=== PATIENT | male | born 1960 | race Caucasian/White ===

== ENCOUNTER 2019-10-07 17:33 | Emergency (ER) | payer OTHER, BC, SELFPAY ==
--- NOTE | ~2019-10-07 | XR_ITS ---
XR foot RT min 3V 10/07/2019 17:56 Indication: Dorsal right foot pain. Procedure: 4 views of the right foot Comparison: No prior studies for comparison. Findings: No fracture, subluxation or dislocation. There is anatomic alignment. Lisfranc joint intact . Osteopenia. No focal soft tissue abnormality. Impression: 1: No acute fracture. Reviewed, dictated and finalized at location A. [employer]PER Impression: 1: No acute fracture.
[2019-10-07 17:40] VITALS: BP 129/66; PULSE 88; RESP 18; TEMP 36.8; O2SAT 98
--- NOTE | 2019-10-07 18:14 | ED.LOWEXIN ---
HPI - Extremity Injury (Lower) General Chief Complaint: Extremity Injury, Lower Stated Complaint: foot injury Time Seen by Provider: 10/07/19 17:59 Source: patient Mode of arrival: wheelchair Limitations: no limitations History of Present Illness HPI Narrative: This is a 59-year-old male that presents the emergency department for right foot pain after an injury today. 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 Reports he dropped a shelf on his right foot. Reports since he has had pain on the top of his foot. Reports the pain is making it hard for him to bear weight on the foot. Denies decreased range of motion or numbness. Related Data Allergies Allergy/AdvReac Type Severity Reaction Status Date / Time cephalexin Allergy Unknown Swelling Verified 10/01/17 07:03 Iodinated Contrast Media Allergy Unknown Verified 05/22/13 15:46 Contrast Media Allergy Unknown HIVES Uncoded 12/12/18 18:02 Review of Systems Review of Systems: Narrative: CONSTITUTIONAL: Denies fever MUSCULOSKELETAL: Reports joint pain, and myalgia. NEUROLOGIC: Denies numbness All systems reviewed & are unremarkable except as noted in HPI and below PMFSH Family History Family History (Updated 10/02/17 @ 14:31 by DOCTOR UNKNOWN) Father Family history of malignant neoplasm of brain Family history of lung cancer Sibling Patient's sister is in good health Diabetes mellitus Malignant neoplasm of prostate Mother Cerebrovascular accident Family history of Alzheimer's disease Social History Social History Smoking status: Heavy tobacco smoker Alcohol intake: current Exam Narrative: Exam Narrative: GENERAL: Well-appearing, well-nourished, and in no acute distress. HEAD: Normocephalic, atraumatic. EYES: EOMI. EXTREMITIES: Normal range of motion. No edema, erythema or obvious deformity. Normal DP pulse in the right foot. Normal sensation SKIN: Warm, dry, no rash. NEURO: No focal deficits. Alert and oriented x3. PSYCH: Normal mood and affect Course Vital Signs Vital signs: Vital Signs Temperature 98.2 F 10/07/19 17:40 Pulse Rate 88 10/07/19 17:40 Respiratory Rate 18 10/07/19 17:40 Blood Pressure 129/66 10/07/19 17:40 Pulse Oximetry 98 10/07/19 17:40 Temperature 98.2 F 10/07/19 17:40 Pulse Rate 88 10/07/19 17:40 Respiratory Rate 18 10/07/19 17:40 Blood Pressure 129/66 10/07/19 17:40 Pulse Oximetry 98 10/07/19 17:40 MDM - Extremity Injury (Lower) MDM Narrative Medical decision making narrative: Patient presents to the emergency department for right foot pain after an injury today. Right foot x-ray shows no acute changes. Patient will be placed in a postop shoe and given crutches for comfort. He was instructed to rest, ice elevate and take [id number] pain medication as needed. He will be given orthopedics for follow up Imaging Data Radiologist's impression: ITS Impressions Foot X-Ray 10/07/19 17:57 Impression: 1: No acute fracture. Critical Care Time Critical Care Time Critical Care Time: No Discharge Plan Discharge Clinical Impression: Acute pain of right foot Patient Disposition: Home, Self-Care Condition: Stable Instructions: Crush Injury (ED) Additional Instructions: Return to the emergency department if you experience fever, redness and swelling of your leg, numbness, or any other symptoms that are concerning to you Rest, ice, elevate. [id number] pain medication as needed Follow-up with orthopedics Follow-up/Referrals: Clint Hernandez MD [Physician] - 1 Week UNKNOWN,DOCTOR [Primary Care Provider] -
== END 2019-10-07 19:02 | disposition home or self-care (01) ==
PROVIDERS: Emergency Provider Emergency Medicine
DX: M79.671 Pain in right foot (principal); F17.200 Nicotine dependence, unspecified, uncomplicated; W20.8XXA Other cause of strike by thrown, projected or falling object, initial encounter
CPT/HCPCS: 73630; 99283

== ENCOUNTER 2020-10-07 15:55 | Outpatient (CLI) | payer OTHER, SELFPAY ==
--- NOTE | ~2020-10-07 | CT_ITS ---
EXAMINATION:CT lung screening DATE: 10/07/2020 16:45 INDICATION: Personal history of nicotine dependence. Current smoker with 30 pack year history. TECHNIQUE: Computed tomography (CT) of the chest was performed without intravenous contrast. Automate d exposure control and iterative reconstruction technique were employed. The dose-length product (DLP ) was 87.39 mGy-cm. COMPARISON: Chest CT 09/11/2019, 02/14/19. FINDINGS: There is mild emphysema. There is mild scarring at the lung apices. There is mild scarring in right upper lobe. Again seen is a 4 mm nodule in right lower lobe. There is a 6.6 x 3.9 cm pneumat ocele in right lower lobe. There are 10 mm and 8 mm nodules within the pneumatocele, stable from . A calcified right lung nodule is consistent with old granulomatous disease. No pleural effusion. The heart size is normal. There are coronary artery calcifications. No pericardial effusion. There is mild thoracic spondylosis. IMPRESSION: 1. Lung-RADS category 2: Benign appearance or behavior. Continue annual screening with noncontrast lo w-dose chest CT in 12 months. Reviewed, dictated and finalized at location A. [facility] CLINICIAN IMPRESSION: 1. Lung-RADS category 2: Benign appearance or behavior. Continue annual screeni ng with noncontrast low-dose chest CT in 12 months.
== END 2020-10-07 15:56 | disposition home or self-care (01) ==
PROVIDERS: Visit Provider Internal Medicine Critical Care Medicine
DX: Z12.2 Encounter for screening for malignant neoplasm of respiratory organs (principal); Z87.891 Personal history of nicotine dependence
CPT/HCPCS: 71271

== ENCOUNTER 2022-12-11 08:29 | Emergency (ER) | payer OTHER, SELFPAY ==
[2022-12-11 08:52] VITALS: BP 159/76; PULSE 96; RESP 18; TEMP 36.4; O2SAT 97
--- NOTE | 2022-12-11 09:06 | ED.EXTPRO ---
HPI - Extremity Problem General Chief complaint: Extremity Injury, Upper Stated complaint: . Time Seen by Provider: 12/11/22 08:32 Source: patient Mode of arrival: ambulatory Limitations: no limitations History of Present Illness HPI Narrative: Lars is a 62-year-old male patient presenting to the clinic today with complaints of right elbow pain/swelling. He reports that is started to become painful on Saturday. 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 Has had this problem before and it resolved on its own. No known injury to his right elbow. States he is feeling a popping and a knot in his elbow. Related Data Allergies Allergy/AdvReac Type Severity Reaction Status Date / Time cephalexin Allergy Unknown Swelling Verified 12/11/22 08:58 Iodinated Contrast Media Allergy Unknown Unknown Verified 12/11/22 08:58 Contrast Media Allergy Unknown HIVES Uncoded 12/11/22 08:58 Review of Systems Review of Systems: Pertinent positives per HPI. Patient denies any fever, chills, rash, headache, visual changes, dizziness, cough, runny nose, sore throat, shortness of breath, chest pain, palpitations, nausea, vomiting, diarrhea, constipation, abdominal pain, or any urinary issues. PMFSH Family History Family History Father Family history of malignant neoplasm of brain Family history of lung cancer Sibling Patient's sister is in good health Diabetes mellitus Malignant neoplasm of prostate Mother Cerebrovascular accident Family history of Alzheimer's disease Social History Social History Years smoked: 30 Smoking status: Current every day smoker Alcohol intake: current Comments At the time of my signature, I reviewed and agree with the nursing past medical, surgical, social, and family history. There is no relevant family history pertinent to the patient complaint. Exam Narrative: General: Well-developed, well nourished, in no apparent distress Head: Normocephalic, atraumatic. Cardio: Regular rate and rhythm, s1 and s2 normal, no murmur appreciated. Resp: Clear to auscultation bilaterally, no rhonchi, rales, wheezing or rubs. Musculoskeletal: No deformity, no redness or erythema, swelling with fluid noted over the right olecranon, tender to palpation with fluctuance, mild discomfort with range of motion, grossly normal range of motion, muscle strength strong and equal, peripheral pulse strong, no cyanosis, normal gait and station Course Course Emergency Course: Portions of this record may have been created with voice recognition software. Level of Care: Express Care Visit Vital Signs Vital signs: Vital Signs Temperature 36.4 C 12/11/22 08:52 Pulse Rate 96 12/11/22 08:52 Respiratory Rate 18 12/11/22 08:52 Blood Pressure 159/76 H 12/11/22 08:52 Pulse Oximetry 97 12/11/22 08:52 Oxygen Delivery Room Air 12/11/22 08:52 Temperature 36.4 C 12/11/22 08:52 Pulse Rate 96 12/11/22 08:52 Respiratory Rate 18 12/11/22 08:52 Blood Pressure 159/76 H 12/11/22 08:52 Pulse Oximetry 97 12/11/22 08:52 Oxygen Delivery Room Air 12/11/22 08:52 Vital signs reviewed Procedures Abscess I/D right elbow: Date of Incision: 12/11/22 Side (if applicable): right Sedation/analgesia: none Local Anesthetic: none Technique: needle aspiration Amount of fluid expressed (mL): 10 Irrigation: No Packing used?: none I&D Results: Other (Clear bursa fluid) Complications: other (None) Abcess I&D Additional Comments: Verbal consent obtained for aspiration of bursa fluid to the right elbow. Risk and benefits explained and patient voiced understanding. Area was cleansed with an alcohol prep and an 18 gauge needle was then used to withdrawal 10 mL of clear bursa fluid. Bleeding was controlled
== END 2022-12-11 09:14 | disposition home or self-care (01) ==
PROVIDERS: Emergency Provider Nurse Practitioner Family
DX: M70.21 Olecranon bursitis, right elbow (principal); F17.200 Nicotine dependence, unspecified, uncomplicated
CPT/HCPCS: 20605; 99213; G0463

== ENCOUNTER 2022-12-22 15:06 | Emergency (ER) | payer OTHER, SELFPAY ==
--- NOTE | ~2022-12-22 | XR_ITS ---
EXAMINATION: XR elbow RT min 3V DATE: 12/22/2022 16:17 INDICATION: Right elbow injury post catching 833 weeks prior. TECHNIQUE: Anteroposterior, two oblique and lateral views of the right elbow were obtained. COMPARISON: None. FINDINGS: Alignment is normal. No fracture or joint effusion. Joint spaces are normal. Small enthesophyte at th e lateral epicondyle and tiny enthesopathic ossicle along the medial epicondyle. Likely bandaging mat erial posterior to the right elbow which focally compresses the underlying soft tissues. Soft tissues are otherwise unremarkable. IMPRESSION: 1. No right elbow joint effusion or acute osseous abnormality. Reviewed, dictated and finalized at location A.
--- NOTE | 2022-12-22 15:16 | ED.EXTPRO ---
HPI - Extremity Problem General Chief complaint: Extremity Injury, Upper Stated complaint: swollen rt elbow Time Seen by Provider: 12/22/22 15:14 Source: patient Mode of arrival: ambulatory Limitations: no limitations History of Present Illness HPI Narrative: Lars's a 62-year-old male patient presenting to the clinic today with complaints of swelling of his right elbow. I saw this patient back on December 11 and diagnosed with olecranon bursitis and completed a needle aspiration of the bursa fluid. He reports Related Data Allergies Allergy/AdvReac Type Severity Reaction Status Date / Time cephalexin Allergy Unknown Swelling Verified 12/22/22 15:25 Iodinated Contrast Media Allergy Unknown Unknown Verified 12/22/22 15:25 Contrast Media Allergy Unknown HIVES Uncoded 12/22/22 15:25 Review of Systems Review of Systems: Pertinent positives per HPI. Patient denies any fever, chills, rash, headache, visual changes, dizziness, cough, runny nose, sore throat, shortness of breath, chest pain, palpitations, nausea, vomiting, diarrhea, constipation, abdominal pain, or any urinary issues. PMFSH Family History Family History Father Family history of malignant neoplasm of brain Family history of lung cancer Sibling Patient's sister is in good health Diabetes mellitus Malignant neoplasm of prostate Mother Cerebrovascular accident Family history of Alzheimer's disease Social History Social History Years smoked: 30 Smoking status: Current every day smoker Alcohol intake: current Comments At the time of my signature, I reviewed and agree with the nursing past medical, surgical, social, and family history. There is no relevant family history pertinent to the patient complaint. Exam Narrative: General: Well-developed, well nourished, in no apparent distress Head: Normocephalic, atraumatic. Cardio: Regular rate and rhythm, s1 and s2 normal, no murmur appreciated. Resp: Clear to auscultation bilaterally, no rhonchi, rales, wheezing or rubs. Musculoskeletal: No deformity, tender to palpation over the epicondylitis with bursitis/ significant tissue swelling, grossly normal range of motion, muscle strength strong and equal, peripheral pulse strong, no edema, no cyanosis, normal gait and station Course Course Emergency Course: Portions of this record may have been created with voice recognition software. Level of Care: Express Care Visit Vital Signs Vital signs: Vital Signs Temperature 35.9 C L 12/22/22 15:28 Pulse Rate 103 H 12/22/22 15:28 Respiratory Rate 20 12/22/22 15:28 Blood Pressure 129/75 12/22/22 15:28 Pulse Oximetry 98 12/22/22 15:28 Oxygen Delivery Room Air 12/22/22 15:28 Temperature 35.9 C L 12/22/22 15:28 Pulse Rate 103 H 12/22/22 15:28 Respiratory Rate 20 12/22/22 15:28 Blood Pressure 129/75 12/22/22 15:28 Pulse Oximetry 98 12/22/22 15:28 Oxygen Delivery Room Air 12/22/22 15:28 Vital signs reviewed Procedures Abscess I/D Right elbow: Date of Incision: 12/22/22 Side (if applicable): right Sedation/analgesia: none Local Anesthetic: none Technique: needle aspiration Amount of fluid expressed (mL): 15 Abcess I&D Additional Comments: Verbal consent obtained for aspiration drainage. Risk and benefits explained and patient voiced understanding. Area was cleansed with alcohol. An 18 gauge needle and a 20 mL syringe was then used to aspirate 15 ml of yellow/ clear bursal fluid from the right elbow. Patient tolerated well. Band-Aid, 4x4s, and Yasmani wrap was applied MDM - Extremity (Nontraumatic) MDM Narrative Medical decision making narrative: At the time of visit patient is resting comfortably on exam table. I suspect patient has bursitis of the right elbow. Bursitis was drained (15ml) and
[2022-12-22 15:28] VITALS: BP 129/75; PULSE 103; RESP 20; TEMP 35.9; O2SAT 98
--- NOTE | 2022-12-22 16:12 | PC.NURSE ---
1610- RN to RN report received from Francy White. Pt transferred from [facility] for xray d/t xray being unavailable.
== END 2022-12-22 16:39 | disposition home or self-care (01) ==
PROVIDERS: Emergency Provider Nurse Practitioner Family
DX: M70.21 Olecranon bursitis, right elbow (principal); F17.200 Nicotine dependence, unspecified, uncomplicated; J44.9 Chronic obstructive pulmonary disease, unspecified
CPT/HCPCS: 20605; 73080; 99213; G0463

== ENCOUNTER → 2023-06-11 12:48 | Outpatient (CLI) | payer OTHER, SELFPAY ==
--- NOTE | ~2023-06-11 | CT_ITS ---
EXAMINATION:CT diagnostic chest wo con DATE: 06/11/2023 13:12 INDICATION: Solitary pulmonary nodule. TECHNIQUE: Computed tomography (CT) of the chest was performed without intravenous contrast. Automate d exposure control and iterative reconstruction technique were employed. The dose-length product (DLP ) was 67.68 mGy-cm. COMPARISON: Chest CT 10/07/2020 FINDINGS: There is stable mild scarring at the lung apices. There is mild emphysema. Calcified right lung nodules are consistent with old granulomatous disease. There are 5 mm and 4 mm nodules in right lower lobe with interval decrease in size. No pleural effusion. There is ectasia of ascending aorta m easuring 4.2 cm. The heart size is normal. There are coronary artery calcifications. No pericardial e ffusion. There is mild thoracic spondylosis. IMPRESSION: 1. Lung-RADS category 2: Benign appearance or behavior. Continue annual screening with noncontrast lo w-dose chest CT in 12 months. Reviewed, dictated and finalized at location E. IMPRESSION: 1. Lung-RADS category 2: Benign appearance or behavior. Continue annual screeni ng with noncontrast low-dose chest CT in 12 months.
== END ==
PROVIDERS: PCP Nurse Practitioner Family; Visit Provider Nurse Practitioner Family
DX: R91.1 Solitary pulmonary nodule (principal)
CPT/HCPCS: 71250

== ENCOUNTER 2023-09-26 12:29 | Inpatient (IN) | payer OTHER, SELFPAY ==
[2023-09-26] VITALS (61 sets, daily range): BP systolic 107–189; BP diastolic 62–98; PULSE 60–111; RESP 12–21; TEMP 36.8; O2SAT 90–100; BMI 22.4
--- NOTE | ~2023-09-26 | CT_ITS ---
EXAMINATION: CT abdomen pelvis wo con DATE: 09/26/2023 18:19 INDICATION: Right upper quadrant and chest pain TECHNIQUE: Computed tomography (CT) of the abdomen and pelvis was performed without intravenous contr ast. The dose-length product (DLP) was 371.99 mGy-cm. Automated exposure control and iterative recons truction technique were employed. COMPARISON: 10/08/2017 FINDINGS: There is mild emphysema. There is a small right-sided pneumothorax. There are airspace opac ities in the lower lobes. There is calcified coronary artery atherosclerosis. There are is a small ri ght pleural effusion. A small sliding hiatal hernia is noted. The heart size is normal. The liver, sp jaime, pancreas, gallbladder, and adrenal glands are unremarkable. There is a 2 mm nonobstructing ston e of the left kidney. The right kidney is unremarkable. There is calcified atherosclerosis of the aor ta and many of the other arteries. No pathologically enlarged abdominal or pelvic lymph nodes are clark ntified. There is moderate lumbar spondylosis. IMPRESSION: 1. Small right-sided pneumothorax. 2. Airspace opacities of the lower lobes, consistent with pneumonia. 3. No acute findings of the abdomen or pelvis. These findings were discussed with Dr. Alisia Espino MD in the Emergency Department at 1915 h ours on 09/26/2023. Reviewed, dictated and finalized at location F. FIC CONTROL TECHNICIAN IMPRESSION: 1. Small right-sided pneumothorax. 2. Airspace opacities of the lower lobes, consistent with pneumonia. 3. No acute findings of the abdomen or pelvis. These findings were discussed with Dr. Alisia Espino MD in the Emergenc y Department at 1915 hours on 09/26/2023.
--- NOTE | ~2023-09-26 | XR_ITS ---
XR chest 2V DATE: 09/28/2023 08:10 INDICATION: Follow-up of hemopneumothorax. Right-sided chest pain. TECHNIQUE: PA and lateral views COMPARISON: 09/26/2023 chest 06/28/2023 CT chest FINDINGS: Bilateral hyperinflation consistent with COPD. Minimal atelectasis is suggested at the left lung base. The lungs otherwise appear clear. No pleural effusion or pulmonary vascular congestion or pneumothorax is detected. IMPRESSION: COPD Minimal atelectasis at the left lung base Reviewed, dictated and finalized at location A. LATION ENGINEMAN
--- NOTE | ~2023-09-26 | XR_ITS ---
XR chest 2V DATE: 09/26/2023 13:03 INDICATION: Right chest pain TECHNIQUE: AP and lateral views COMPARISON: 06/11/2023 CT chest FINDINGS: Bilateral hyperinflation consistent with COPD. No pulmonary infiltrate or consolidation, pl eural effusion or pulmonary vascular congestion or pneumothorax is detected. Heart size is within normal limits. Mild levoscoliosis of the upper thoracic spine and more prominent lower thoracic and lumbar dextrosco liosis. Degenerative spurring of the included upper lumbar spine. IMPRESSION: Bilateral hyperinflation consistent with COPD No active cardiopulmonary disease Reviewed, dictated and finalized at location L. IT CLERK
--- NOTE | ~2023-09-26 | XR_ITS ---
XR chest 2V DATE: 09/29/2023 06:55 INDICATION: Hemothorax TECHNIQUE: PA and lateral views COMPARISON: 09/28/2023 2 view chest 06/11/2023 CT chest FINDINGS: Focal infiltrate is suggested in the right infrahilar area. Recommend continued short-term follow-up chest radiographs; if this does not resolve, consider CT thorax. The lungs are otherwise clear of infiltrate or consolidation. Bilateral hyperinflation and relative f lattening the diaphragm, consistent with COPD. No pleural effusion or pulmonary vascular congestion or pneumothorax. Normal heart size. No hilar or mediastinal enlargement is evident. Osteopenia. No suspicious osteolytic or osteoblastic lesions are noted. IMPRESSION: Mild right infrahilar infiltrate; recommend continued radiographic follow-up. If this moise s not resolve, then CT thorax would be indicated Emphysema. Reviewed, dictated and finalized at location A. UCT LINE MANAGER IMPRESSION: Mild right infrahilar infiltrate; recommend continued radiographic follow-up. If this does not resolve, then CT thorax would be indicated Emphysema.
--- NOTE | 2023-09-26 12:31 | ECG_ITS ---
Measurements Intervals [place] Rate: 87 P: -42 MD: 151 QRS: 87 QRSD: 88 T: 77 QT: 331 QTc: 398 Interpretive Statements SINUS RHYTHM CANNOT RULE OUT SEPTAL INFARCT, AGE INDETERMINATE ST-T WAVE ABNORMALITY IN ANTEROLAT/INF LEADS- PROBABLY EARLY REPOLARIZATION ABNORMALITY BASELINE ARTIFACT- I, II, III, AVR, AVL, AVF, V4-V6 ABNORMAL ECG NO PREVIOUS ECG AVAILABLE FOR COMPARISON Electronically Signed On 09-26-2023 13:04:24 HOME HEALTH REGISTERED NURSE by Riley Lino D.O.
[2023-09-26] MEDS: ASPIRIN 81 MG CHEWABLE TABLET 324 MG PO (12:41)
[2023-09-26 12:49] LABS: Basophils Absolute Auto 0.1 K/mm3 (0.0-0.1); Basophils Percent Auto 0.4 % (0.2-1.2); Eosinophils Absolute Auto 0.1 K/mm3 (0-0.3); Eosinophils Percent Auto 0.5 % (0-4.4); Hematocrit 44.4 % (42.0-52.0); Hemoglobin 14.5 g/dL (14.0-18.0); Immature Granulocyte Absolute 0.08 K/mm3 (0.00-0.031); Immature Granulocyte Percent A 0.5 % (0-0.5); Lymphocytes Percent Auto 11.7 % (18.3-44.2); Mean Corpuscular HGB Conc 32.7 g/dl (32-36); Mean Corpuscular Hemoglobin 31.9 pg (26-34); Mean Corpuscular Volume 97.8 fl (80-100); Mean Platelet Volume 10.7 fl (7.4-10.4); Monocytes Absolute Auto 1.4 K/mm3 (0.1-0.6); Monocytes Percent Auto 8.1 % (2.6-8.5); Neutrophils Absolute Auto 13.5 K/mm3 (1.3-6.7); Neutrophils Percent Auto 78.8 % (45.5-73.1); Platelet Count Result 368 k/mm3 (150-375); Red Blood Count 4.54 M/mm3 (4.6-6.20); Red Cell Distribution Width 13.8 % (11.5-14.5); White Blood Count 17.1 K/mm3 (4.5-10.0)
[2023-09-26 12:58] LABS: INR 0.9; Prothrombin Time 12.8 Seconds (11.1-14.7)
[2023-09-26 12:59] LABS: Partial Thromboplastin Time 31.7 SECONDS (22.3-36.8)
[2023-09-26 13:00] LABS: Alanine Aminotransferase 22 U/L (6-50); Albumin Level 4.9 g/dL (3.5-5.1); Alkaline Phosphatase 79 U/L (38-126); Anion Gap 10 mmol/L (8-16); Aspartate Amino Transferase 34 U/L (17-59); Bilirubin,Total 0.7 mg/dL (0.2-1.3); Blood Urea Nitrogen 8 mg/dL (9-20); Calcium 8.9 mg/dL (8.4-10.2); Carbon Dioxide 25 mmol/L (22-30); Chloride 95 mmol/L (98-107); Estimated CRCL calculation 137 ml/min; Estimated Glomerular Filt Rate > 60; Glucose 97 mg/dL (65-110); Lipase 52 U/L (23-300); Potassium 4.3 mmol/L (3.4-5.0); Sodium 130 mmol/L (137-145)
[2023-09-26 13:12] LABS: Troponin I < 0.012 ng/mL (0.000-0.034)
[2023-09-26] MEDS: SODIUM CHLORIDE 0.9% IV 1,000 ML 999 ML IV CONT ×2 (15:46→16:36)
[2023-09-26] MEDS: KETOROLAC 30 MG/ML VIAL (*BKC) IV PUSH (15:47)
[2023-09-26] MEDS: ONDANSETRON INJ 4 MG/2 ML VIAL IV PUSH (15:47)
[2023-09-26 15:54] LABS: Troponin I < 0.012 ng/mL (0.000-0.034)
--- NOTE | 2023-09-26 16:18 | ED.CHESTPAIN ---
HPI - Chest Pain General Chief Complaint: Chest Pain Stated Complaint: chest pain Time Seen by Provider: 09/26/23 14:03 History of Present Illness HPI narrative: Patient is a 63-year-old male with history of COPD presenting with right-sided chest pain. Patient states he woke up this morning and had right-sided chest pain. States it is his lower right chest. Denies episodes like this in the past. Denies significant shortness of breath or worsening cough. States that he has a chronic slightly productive cough that is unchanged. 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 States he felt nauseated earlier because the pain was so severe but no vomiting or abdominal pain. No diarrhea. No leg swelling. No further complaints. Related Data Allergies Allergy/AdvReac Type Severity Reaction Status Date / Time cephalexin Allergy Unknown Swelling Verified 07/10/23 14:22 Iodinated Contrast Media Allergy Unknown Unknown Verified 07/10/23 14:22 Contrast Media Allergy Unknown HIVES Uncoded 07/10/23 14:22 Review of Systems Review of Systems: All systems reviewed & are unremarkable except as noted in HPI and below PMFSH Family History Family History Father Family history of malignant neoplasm of brain Family history of lung cancer Sibling Patient's sister is in good health Diabetes mellitus Malignant neoplasm of prostate Mother Cerebrovascular accident Family history of Alzheimer's disease Social History Social History Smoking packs per day: 0.5 Smoking cigarettes per day: 10.0 Years smoked: 30 Smoking pack-years: 15.00 Smoking status: Current every day smoker Tobacco type: cigarettes Alcohol intake: current Drinks per week: 15 Substance use: never Substance use type: does not use Do You Feel Safe in your Home?: Yes Lack of Transportation: YES Lack of Food: Never True Current Housing: I Have Housing Concerned About Future Housing: No Difficulty Paying Gas/Electric Bills: No Difficulty Paying for Meds: No Currently Unemployed: No Education: High School Diploma/GED Difficulty w/ Childcare or Family Care: No Spiritual care concerns: No Exam Narrative: GENERAL: Nontoxic, no acute distress, pleasant cooperative HEAD: Normocephalic, atraumatic. EYES: PERRLA and EOMI. ENT: grossly unremarkable NECK: Supple. CHEST: wheezing and crackles bilaterally, no respiratory distress, saturating well on room air HEART: Regular rate and rhythm. ABDOMEN: Soft, nontender, nondistended EXTREMITIES: Normal range of motion. No edema. SKIN: Warm, dry, no rash. NEURO: No focal deficits. Alert and oriented x3. PSYCH: Normal mood and affect. Course Vital Signs Vital signs: Vital Signs Pulse Rate 87 09/26/23 12:36 Respiratory Rate 16 09/26/23 12:36 Pulse Oximetry 99 09/26/23 12:36 Temperature 98.2 F 09/29/23 05:50 Pulse Rate 83 09/29/23 08:00 Respiratory Rate 20 09/29/23 07:58 Blood Pressure 146/72 H 09/29/23 05:50 Pulse Oximetry 94 09/29/23 07:48 Oxygen Delivery Room Air 09/29/23 07:48 Fraction of Inspired Oxygen 09/28/23 20:00 MDM - Chest Pain MDM Narrative Medical decision making narrative: 63-year-old male presenting with right-sided chest pain. Vitals are stable. He is saturating well on room air. He is wheezing and has crackles in bilateral bases. EKG per my interpretation shows normal sinus rhythm, slight ST elevations in anterolateral leads, likely benign repolarization. Similar to a prior EKG that was scanned into our system. CXR w/o acute abnormalities. Blood work with leukocytosis, white count is 17. Remainder blood work is unremarkable. Troponins undetectable x2. Patient continued to complain of lower right-sided chest pain, D-dimer
[2023-09-26] MEDS: ALBUTEROL SULFATE NEB 2.5 MG/3 ML INH 10 MG INHALATION (16:29)
[2023-09-26] MEDS: IPRATROPIUM BR 0.02% INH SOLN 0.5 MG/2.5 ML VIAL INHALATION (16:29)
[2023-09-26] MEDS: methylPREDNISolone SOD SUCC 125 MG VIAL IV PUSH (16:37)
[2023-09-26] MEDS: MORPHINE SULFATE (*CRX) 4 MG/ML INJ IV PUSH (16:40)
--- NOTE | 2023-09-26 16:44 | ECG_ITS ---
Measurements Intervals [place] Rate: 92 P: -21 [place]: 165 QRS: 75 QRSD: 90 T: 70 QT: 333 QTc: 414 Interpretive Statements SINUS RHYTHM ATRIAL PREMATURE COMPLEXES ANTEROSEPTAL INFARCT, AGE INDETERMINATE ST ELEVATION IN ANTEROLATERAL LEADS- PROBABLY EARLY REPOLARIZATION ABNORMAL ECG COMPARED TO ECG 09/26/2023 12:36:33 NO SIGNIFICANT CHANGES Electronically Signed On 09-26-2023 18:52:13 ANTIQUE REPAIRER by Riley Lino D.O.
[2023-09-26] MEDS: DOXYCYCLINE HYCLATE 100 MG TABLET PO (16:55)
[2023-09-26] MEDS: AMOXICILLIN/CLAVULANATE K 875-125 MG TAB 1 TABLET PO (16:55)
[2023-09-26 17:34] LABS: Influenza A QL RT-PCR Negative (Negative); Influenza B QL RT-PCR Negative (Negative); RSV RNA, RT-PCR Negative (Negative); SARS-CoV-2 RNA PCR Negative (Negative)
[2023-09-26 18:50] LABS: D Dimer 0.35 ug/mL (<0.48)
[2023-09-26 18:56] LABS: Troponin I < 0.012 ng/mL (0.000-0.034)
--- NOTE | 2023-09-26 20:03 | PM.IMHP ---
H&P: HPI History of Present Illness Date/Time: 09/26/23 20:03 Chief Complaint: Ribcage pain Narrative: This is a 63-year-old male with past medical history significant for COPD/emphysema, tobacco dependence. Patient presents to the emergency room due to sudden onset right-sided ribcage pain according to patient is has been his usual state of health denies any fevers, rigors, chills he has a cough with productive phlegm which is white. Denies any nausea, vomiting, diarrhea, abdominal pain, generalized body aches and pains, generalized malaise. Preliminary workup was significant for CT of abdomen and pelvis showed bilateral bibasal pneumonia and apical small pneumothorax. XR chest 2V DATE: 09/26/2023 13:03 INDICATION: Right chest pain? TECHNIQUE: AP and lateral views? COMPARISON: 06/11/2023 CT chest FINDINGS: Bilateral hyperinflation consistent with COPD. No pulmonary infiltrate or consolidation, pleural effusion or pulmonary vascular congestion or pneumothorax is detected. Heart size is within normal limits. Mild levoscoliosis of the upper thoracic spine and more prominent lower thoracic and lumbar dextroscoliosis. Degenerative spurring of the included upper lumbar spine.? IMPRESSION: Bilateral hyperinflation consistent with COPD No active cardiopulmonary disease? EXAMINATION: CT abdomen pelvis wo con DATE: 09/26/2023 18:19 INDICATION: Right upper quadrant and chest pain TECHNIQUE: Computed tomography (CT) of the abdomen and pelvis was performed without intravenous contrast. The dose-length product (DLP) was 371.99 mGy-cm. Automated exposure control and iterative reconstruction technique were employed. COMPARISON: 10/08/2017 FINDINGS: There is mild emphysema. There is a small right-sided pneumothorax. There are airspace opacities in the lower lobes. There is calcified coronary artery atherosclerosis. There are is a small right pleural effusion. A small sliding hiatal hernia is noted. The heart size is normal. The liver, spleen, pancreas, gallbladder, and adrenal glands are unremarkable. There is a 2 mm nonobstructing stone of the left kidney. The right kidney is unremarkable. There is calcified atherosclerosis of the aorta and many of the other arteries. No pathologically enlarged abdominal or pelvic lymph nodes are identified. There is moderate lumbar spondylosis. IMPRESSION: 1. Small right-sided pneumothorax. 2. Airspace opacities of the lower lobes, consistent with pneumonia. 3. No acute findings of the abdomen or pelvis. Patient is been admitted for further evaluation, management and treatment. Review of Systems Review of Systems: Sudden onset, right ribcage pain, cough productive of white phlegm. Constitutional: Constitutional: Denies chills, Denies fatigue, Denies fever(s), Denies lethargy, Denies malaise, Denies night sweats, Denies poor appetite and Denies weakness Eyes: Eyes: Denies change in vision ENT: Denies dysphagia and Denies odynophagia Cardiovascular: Cardiovascular: Denies chest pain, Denies radiating jaw, neck or arm pain and Denies palpitations Respiratory: Respiratory: Denies change in phlegm color, Denies chest congestion, Reports cough (Productive of white phlegm), Denies excessive phlegm production and Denies pain on inspiration Gastrointestinal: Gastrointestinal: Denies abdominal pain, Denies dyspepsia, Denies heartburn, Denies diarrhea, Denies nausea and Denies vomiting Genitourinary: Genitourinary: Denies dysuria Musculoskeletal: Musculoskeletal: Denies myalgias and Denies arthralgias Integumentary/Breasts: Skin/Breast: Denies rash Neurologic: Denies focal weakness and Denies Sensory deficit (Neuro) Psychiatric: Psychiatric: Reports no additional psychiatric complaints and Reports as per HPI Endocrine: Endocrine: Denies cold intolerance, Denies fatigue, Denies flushing, Denies heat intolerance, Denies polyphagia, Denies polydipsia and Denies palpitations Hematologic/Lymphati
--- NOTE | 2023-09-26 21:00 | PC.NURSE ---
RN stated he would call back in 5 minutes.
--- NOTE | 2023-09-26 22:23 | ADMGEN ---
This patient, Lars Lopez, was admitted to 3 [facility] Room 303-01. Patient/family oriented to hospital policies and general routines including ID bracelet, bed and alarms, visiting hours, pain management, procedures, bathroom and other care routines, personal items, smoking policy, room service/diet, and visiting hours. Information on how to activate the Rapid Response Team has been discussed. Patient/Family are encouraged to report perceived risks to care and to ask questions if they do not understand what they are told or what they should do.
[2023-09-27] VITALS (17 sets, daily range): BP systolic 138–149; BP diastolic 62–67; PULSE 76–108; RESP 16–20; TEMP 36.5–37; O2SAT 93–98
[2023-09-27] MEDS: methylPREDNISolone SOD SUCC 125 MG VIAL 60 MG IV PUSH ×4 (00:39→17:48)
[2023-09-27] MEDS: levoFLOXacin 750 MG/D5W 150 ML 750 MG/150 ML BAG 100 MG IVPB (05:16)
[2023-09-27] MEDS: IPRATROPIUM 0.5 MG/ALBUTEROL SULFATE 2.5 MG AMPUL.NEB 3 ML INHALATION ×3 (07:26→20:40)
--- NOTE | 2023-09-27 07:32 | PM.IMPN ---
Progress Note: A&P Assessment and Plan (1) Pneumonia: Code(s): J18.9 - Pneumonia, unspecified organism Status: Acute Assessment and Plan: ct reveals: airspace opacities lower lobes consistent with PNA -Check urine legionella, urine pneumococcal -check daily CBC, CMP -concern for tendinitis going to DC the levofloxacin -restart Augmentin 875-125 1 tablet q.12 hours -restart Doxycycline 100mg q 12 hours -continue duo neb tx q 6 hrs as needed for sob, wheezing - add umeclidinium 1 puff daily - continue methylprednisolone 60mg IV push q 6 hours, will deescalate in 24rs -order echo in the a.m. (2) Pneumothorax: Code(s): J93.9 - Pneumothorax, unspecified Status: Acute Assessment and Plan: -small right-sided pneumothorax, pt is stable -order serial chest xray, daily - if seen on CXR will consider IR or Gen surgery for consult (3) Tobacco dependence: Code(s): F17.200 - Nicotine dependence, unspecified, uncomplicated Status: Acute Assessment and Plan: - order nicotine gum (4) Lung nodule: Code(s): R91.1 - Solitary pulmonary nodule Status: Acute Assessment and Plan: -pt follows with pulmonology outpatient -patient will need to s/p: discharge for continued monitoring (5) Chronic alcohol dependence, continuous: Code(s): F10.20 - Alcohol dependence, uncomplicated Status: Acute Assessment and Plan: pt reports hx of alcohol use daily, 2-3 drinks, pt AST, ALT are normal he denies any hx of alcohol withdrawal signs and symptoms, he reports his last drink was 2 days prior to admission -continue to monitor for any s/s irritable, or agitation -CIWA scale not used, pt is low risk Plan Pt only reports home medications as naproxen, we will hold at this time VTE Prophylaxis: Enoxaparin subQ DIET: Regular Anticipated hospital stay: >2days Code Status: Full Subjective Date/time seen: 09/27/23 07:32 Interval history: Chief Complaint: Ribcage pain Narrative: ?This is a 63-year-old male with past medical history significant for COPD/emphysema, tobacco dependence.? Patient presents to the emergency room due to sudden onset right-sided ribcage pain according to patient is has been his usual state of health denies any fevers, rigors, chills he has a cough with productive phlegm which is white.? Denies any nausea, vomiting, diarrhea, abdominal pain, generalized body aches and pains, generalized malaise.? Preliminary workup was significant for CT of abdomen and pelvis showed bilateral pneumonia and apical small pneumothorax. Interval Hx: 09/27/2023: Patient seen this morning, he denies any overnight events, he reports his pain originally started on the right side, and then he noticed he had increased shortness of breath. He reports he feels much better since he has had antibiotics and steroids. Will continue to monitor, discuss CT and x-ray findings with patient. Review of Systems Review of Systems: Sudden onset, right ribcage pain, cough productive of white phlegm. Objective Data Vital Signs Vital Signs: Vital Signs - 24 hr 09/26/23 12:36 09/26/23 12:37 09/26/23 12:38 Temperature Pulse Rate 87 90 Respiratory Rate 16 Blood Pressure Pulse Oximetry 99 99 Oxygen Delivery Room Air Fraction of Inspired Oxygen 09/26/23 12:42 09/26/23 12:46 09/26/23 12:37 Temperature Pulse Rate 86 95 Respiratory Rate 14 13 Blood Pressure 189/98 H 189/98 H Pulse Oximetry 100 99 Oxygen Delivery Room Air Room Air Fraction of Inspired Oxygen 09/26/23 12:38 09/26/23 12:45 09/26/23 12:46 Temperature Pulse Rate 90 88 88 Respiratory Rate 14 13 12 Blood Pressure 163/90 H Pulse Oximetry 100 100 100 Oxygen Delivery Fraction of Inspired Oxygen 09/26/23 13:06 09/26/23 13:07 09/26/23 13:15 Temperature Pulse Rate 80 81 82 Respiratory Rate 17 20 18 Blood Pressure 160/80 H Pulse Ox
[2023-09-27] MEDS: NICOTINE (*PBKC) 4 MG GUM PO (17:43)
[2023-09-27] MEDS: AMOXICILLIN/CLAVULANATE K 875-125 MG TAB 1 TABLET PO (21:42)
[2023-09-27] MEDS: DOXYCYCLINE HYCLATE 100 MG TABLET PO (21:43)
[2023-09-28] VITALS (16 sets, daily range): BP systolic 134–157; BP diastolic 56–65; PULSE 77–94; RESP 16–18; TEMP 35.8–36.8; O2SAT 96–99
--- NOTE | 2023-09-28 | ECHO_ITS ---
Patient Info Name: Lars Lopez Age: 63 years : 1960 Gender: Male Ht: 74 in Wt: 175 lbs BSA: 2.03 m2 HR: 56 bpm BP: 134 / 56 mmHg Heart Rhythm: Sinus Rhythm Technical Quality: Good Exam Date: 09/28/2023 8:30 AM Exam Location: Echo Lab Patient Status: Inpatient Admit Date: 09/26/2023 Staff Ordering Physician: Kaitlynn Gomez APRN Toe Pounder: Megha Blankenship RDCS Attending Provider: Francisca Lowe MD Referring Physician: Patricia YOON; Exam Type: CA echo doppler color flow Study Info Indications - chest pain Complete two-dimensional, color flow and Doppler transthoracic echocardiogram is performed. Summary 1. Complete two-dimensional, color flow and Doppler transthoracic echocardiogram is performed. 2. Mild left ventricular hypertrophy with normal systolic function and grade 1 diastolic noncompliance. 3. Mildly sclerotic aortic valve with well maintained leaflet excursion. Left Ventricle Left ventricular chamber dimension is normal. Left ventricular systolic function is normal, estimated at 65-70%. There is mild concentric increased left ventricular wall thickness. The left ventricular diastolic function is grade I diastolic dysfunction. Right Ventricle Right ventricular chamber dimension is normal. Left Atria Left atrial chamber dimension is normal. Right Atria Right atrial chamber dimension is normal. Aortic Valve The aortic valve is trileaflet. There is mild aortic valve sclerosis. Pulmonic Valve The pulmonic valve is normal. Mitral Valve The mitral valve has normal leaflets. Tricuspid Valve The tricuspid valve leaflets are normal. Pericardium/Pleural The pericardium appears normal. Aorta The aortic root size at the sinus of Valsalva is normal. Left Ventricular Outflow Tract Name Value Normal LVOT 2D LVOT Diameter 2.1 cm LVOT Doppler LVOT Peak Gradient 6 mmHg LVOT Mean Gradient 3 mmHg LVOT VTI 30 cm LVOT VTI/AV VTI Ratio 0.8 LVOT Stroke Volume 104 ml LVOT CO 7.3 l/min LVOT CI 3.6 l/min/m2 Pulmonic Valve Name Value Normal RVOT Doppler RVOT Peak Gradient 3 mmHg PV Doppler PV Peak Gradient 4 mmHg Mitral Valve Name Value Normal MV Doppler MV Decel Foster 581 cm/s2 MV PHT 58 ms MV Area (PHT) 3.8 cm2 4.0-5.0 MV Diastolic Function ------
[2023-09-28] MEDS: methylPREDNISolone SOD SUCC 125 MG VIAL 60 MG IV PUSH ×3 (00:50→12:03)
[2023-09-28] MEDS: IPRATROPIUM 0.5 MG/ALBUTEROL SULFATE 2.5 MG AMPUL.NEB 3 ML INHALATION ×5 (02:35→20:11)
[2023-09-28 06:16] LABS: Basophils Percent Auto 0.1 % (0.2-1.2); Hematocrit 37.3 % (42.0-52.0); Hemoglobin 12.7 g/dL (14.0-18.0); Immature Granulocyte Absolute 0.25 K/mm3 (0.00-0.031); Immature Granulocyte Percent A 1.1 % (0-0.5); Lymphocytes Absolute Auto 0.94 K/mm3 (0.9-3.2); Lymphocytes Percent Auto 4.1 % (18.3-44.2); Mean Corpuscular Hemoglobin 32.3 pg (26-34); Mean Corpuscular Volume 94.9 fl (80-100); Mean Platelet Volume 11.1 fl (7.4-10.4); Monocytes Absolute Auto 2.1 K/mm3 (0.1-0.6); Neutrophils Absolute Auto 19.8 K/mm3 (1.3-6.7); Neutrophils Percent Auto 85.7 % (45.5-73.1); Platelet Count Result 324 k/mm3 (150-375); Red Blood Count 3.93 M/mm3 (4.6-6.20); White Blood Count 23.1 K/mm3 (4.5-10.0)
[2023-09-28 06:27] LABS: Alanine Aminotransferase 17 U/L (6-50); Albumin Level 4.1 g/dL (3.5-5.1); Alkaline Phosphatase 67 U/L (38-126); Anion Gap 5 mmol/L (8-16); Aspartate Amino Transferase 23 U/L (17-59); Bilirubin,Total 0.4 mg/dL (0.2-1.3); Blood Urea Nitrogen 10 mg/dL (9-20); Calcium 9.3 mg/dL (8.4-10.2); Carbon Dioxide 27 mmol/L (22-30); Chloride 102 mmol/L (98-107); Estimated CRCL calculation 112 ml/min; Estimated Glomerular Filt Rate > 60; Glucose 144 mg/dL (65-110); Potassium 4.1 mmol/L (3.4-5.0); Sodium 134 mmol/L (137-145)
[2023-09-28] MEDS: DOXYCYCLINE HYCLATE 100 MG TABLET PO ×2 (09:06→20:14)
[2023-09-28] MEDS: AMOXICILLIN/CLAVULANATE K 875-125 MG TAB 1 TABLET PO ×2 (09:06→20:14)
[2023-09-28] MEDS: ENOXAPARIN 40 MG/0.4 ML SYRINGE SUB-Q (09:06)
[2023-09-28] MEDS: UMECLIDINIUM BROMIDE 62.5 MCG ELLIPTA 1 PUFF INHALATION (09:31)
--- NOTE | 2023-09-28 13:42 | PM.IMPN ---
Progress Note: A&P Assessment and Plan (1) Pneumonia: Code(s): J18.9 - Pneumonia, unspecified organism Status: Acute Assessment and Plan: ct reveals: airspace opacities lower lobes consistent with PNA -pending urine legionella, urine pneumococcal -check daily CBC, CMP -concern for tendinitis going to DC the levofloxacin -continue Augmentin 875-125 1 tablet q.12 hours -continue Doxycycline 100mg q 12 hours -continue duo neb tx q 6 hrs as needed for sob, wheezing - add umeclidinium 1 puff daily - continue methylprednisolone 60mg IV push q 6 hours, will deescalate in 24rs -pending echo results (2) Pneumothorax: Code(s): J93.9 - Pneumothorax, unspecified Status: Acute Assessment and Plan: -small right-sided pneumothorax, pt is stable -order serial chest xray, daily -CXR is negative for pneumothorax today Patient is requesting home discharge (3) Tobacco dependence: Code(s): F17.200 - Nicotine dependence, unspecified, uncomplicated Status: Acute Assessment and Plan: - order nicotine gum (4) Lung nodule: Code(s): R91.1 - Solitary pulmonary nodule Status: Acute Assessment and Plan: -pt follows with pulmonology outpatient -patient will need to s/p: discharge for continued monitoring (5) Chronic alcohol dependence, continuous: Code(s): F10.20 - Alcohol dependence, uncomplicated Status: Acute Assessment and Plan: pt reports hx of alcohol use daily, 2-3 drinks, pt AST, ALT are normal he denies any hx of alcohol withdrawal signs and symptoms, he reports his last drink was 2 days prior to admission -continue to monitor for any s/s irritable, or agitation -CIWA scale not used, pt is low risk Plan Pt only reports home medications as naproxen, we will hold at this time VTE Prophylaxis: Enoxaparin subQ DIET: Regular Anticipated hospital stay: >2days Code Status: Full Subjective Date/time seen: 09/28/23 13:42 Interval history: This is a 63-year-old male with past medical history significant for COPD/emphysema, tobacco dependence.? Patient presents to the emergency room due to sudden onset right-sided ribcage pain according to patient is has been his usual state of health denies any fevers, rigors, chills he has a cough with productive phlegm which is white.? Denies any nausea, vomiting, diarrhea, abdominal pain, generalized body aches and pains, generalized malaise.? Preliminary workup was significant for CT of abdomen and pelvis showed bilateral? pneumonia and apical small pneumothorax. Interval Hx: 09/27/2023:? Patient seen this morning, he denies any overnight events, he reports his pain originally started on the right side, and then he noticed he had increased shortness of breath.? He reports he feels much better since he has had antibiotics and steroids.? Will continue to monitor, discuss CT and x-ray findings with patient. 09/28/2023: Pt seen this morning spouse is by the bedside he denies any shortness of breath nausea vomiting fever chills or chest pain at this time. The patient requests to be discharged, we discuss discharge plans and will continue to monitor. Review of Systems Review of Systems: All systems reviewed & are unremarkable except as noted in HPI and below Exam Narrative: General: A well-developed, nontoxic-appearing gentlemen, sitting up in bed. HEENT: PERRL, EOMI. Oral mucosa moist. Neck: Supple. No midline cervical tenderness. Respiratory: Respirations are non- labored and lungs are clear to auscultation bilaterally. Cardiovascular: Regular rate and rhythm with S1-S2. Gastrointestinal: Abdomen is soft, non-tender, and non-distended with positive bowel sounds. Skin: Warm and dry. No rash or lesions on limited exam. Extremities: No cyanosis, clubbing, or edema. Radial and pedal pulses intact. Neurological: Alert and oriented. Cranial nerves 2-12 are grossly intact. No gross focal defici
[2023-09-28] MEDS: LORazepam (*CRX) 1 MG TABLET PO (20:14)
[2023-09-29] VITALS (7 sets, daily range): BP systolic 146; BP diastolic 72; PULSE 72–84; RESP 18–20; TEMP 36.8; O2SAT 94–97
[2023-09-29] MEDS: IPRATROPIUM 0.5 MG/ALBUTEROL SULFATE 2.5 MG AMPUL.NEB 3 ML INHALATION ×2 (02:28→07:46)
[2023-09-29 06:12] LABS: Basophils Percent Auto 0.1 % (0.2-1.2); Hematocrit 37.1 % (42.0-52.0); Hemoglobin 12.1 g/dL (14.0-18.0); Immature Granulocyte Absolute 0.15 K/mm3 (0.00-0.031); Immature Granulocyte Percent A 0.9 % (0-0.5); Lymphocytes Absolute Auto 1.74 K/mm3 (0.9-3.2); Lymphocytes Percent Auto 10.2 % (18.3-44.2); Mean Corpuscular HGB Conc 32.6 g/dl (32-36); Mean Corpuscular Volume 98.1 fl (80-100); Mean Platelet Volume 11.4 fl (7.4-10.4); Monocytes Absolute Auto 1.5 K/mm3 (0.1-0.6); Neutrophils Absolute Auto 13.6 K/mm3 (1.3-6.7); Neutrophils Percent Auto 79.8 % (45.5-73.1); Platelet Count Result 337 k/mm3 (150-375); Red Blood Count 3.78 M/mm3 (4.6-6.20); Red Cell Distribution Width 14.2 % (11.5-14.5)
[2023-09-29 06:27] LABS: Alanine Aminotransferase 22 U/L (6-50); Albumin Level 3.4 g/dL (3.5-5.1); Alkaline Phosphatase 72 U/L (38-126); Anion Gap 5 mmol/L (8-16); Aspartate Amino Transferase 25 U/L (17-59); Bilirubin,Total 0.3 mg/dL (0.2-1.3); Blood Urea Nitrogen 11 mg/dL (9-20); Calcium 8.9 mg/dL (8.4-10.2); Carbon Dioxide 29 mmol/L (22-30); Chloride 103 mmol/L (98-107); Estimated CRCL calculation 130 ml/min; Estimated Glomerular Filt Rate > 60; Glucose 115 mg/dL (65-110); Potassium 3.5 mmol/L (3.4-5.0); Sodium 137 mmol/L (137-145)
[2023-09-29] MEDS: UMECLIDINIUM BROMIDE 62.5 MCG ELLIPTA 1 PUFF INHALATION (08:20)
[2023-09-29] MEDS: AMOXICILLIN/CLAVULANATE K 875-125 MG TAB 1 TABLET PO (08:48)
[2023-09-29] MEDS: predniSONE 20 MG TABLET 60 MG PO (08:48)
[2023-09-29] MEDS: DOXYCYCLINE HYCLATE 100 MG TABLET PO (08:48)
[2023-09-29] MEDS: ENOXAPARIN 40 MG/0.4 ML SYRINGE SUB-Q (08:49)
--- NOTE | 2023-09-29 08:57 | PM.DS ---
DS: Admitting Diagnosis Discharge Date 09/29/2023 Admitting Diagnosis Pneumonia DS: Discharge Diagnosis Discharge Diagnosis (1) COPD (chronic obstructive pulmonary disease): Code(s): J44.9 - Chronic obstructive pulmonary disease, unspecified Status: Acute (2) Pneumonia: Code(s): J18.9 - Pneumonia, unspecified organism Status: Acute (3) Pneumothorax: Code(s): J93.9 - Pneumothorax, unspecified Status: Acute (4) Lung nodule: Code(s): R91.1 - Solitary pulmonary nodule Status: Acute (5) Tobacco dependence: Code(s): F17.200 - Nicotine dependence, unspecified, uncomplicated Status: Acute DS: Summary Hospital Course Reason for hospitalization: Pneumonia COPD Hospital Course: Chief Complaint: Ribcage pain Narrative: ?This is a 63-year-old male with past medical history significant for COPD/emphysema, tobacco dependence.? Patient presents to the emergency room due to sudden onset right-sided ribcage pain according to patient is has been his usual state of health denies any fevers, rigors, chills he has a cough with productive phlegm which is white.? Denies any nausea, vomiting, diarrhea, abdominal pain, generalized body aches and pains, generalized malaise.? Preliminary workup was significant for CT of abdomen and pelvis showed bilateral bibasal pneumonia and apical small pneumothorax. Interval history: This is a 63-year-old male with past medical history significant for COPD/emphysema, tobacco dependence.? Patient presents to the emergency room due to sudden onset right-sided ribcage pain according to patient is has been his usual state of health denies any fevers, rigors, chills he has a cough with productive phlegm which is white.? Denies any nausea, vomiting, diarrhea, abdominal pain, generalized body aches and pains, generalized malaise.? Preliminary workup was significant for CT of abdomen and pelvis showed bilateral? pneumonia and apical small pneumothorax. Interval Hx: 09/27/2023:? Patient seen this morning, he denies any overnight events, he reports his pain originally started on the right side, and then he noticed he had increased shortness of breath.? He reports he feels much better since he has had antibiotics and steroids.? Will continue to monitor, discuss CT and x-ray findings with patient. 09/28/2023: Pt seen this morning spouse is by the bedside he denies any shortness of breath nausea vomiting fever chills or chest pain at this time.? The patient requests to be discharged, we discuss discharge plans and will continue to monitor. Time spent discussing smoking cessation with patient: 3 to 10 minutes Status at Discharge Functional status at discharge: independent ambulation Overall status at discharge: patient is progressing back to baseline Time Spent with Patient Time attestation: Total time spent providing and/or coordinating discharge services: Time spent: Less than 30 minutes Exam Narrative: General: A well-developed, nontoxic-appearing gentlemen, sitting up in bed. HEENT: PERRL, EOMI. Oral mucosa moist. Neck: Supple. No midline cervical tenderness. Respiratory: Respirations are non- labored and lungs are clear to auscultation bilaterally. Cardiovascular: Regular rate and rhythm with S1-S2. Gastrointestinal: Abdomen is soft, non-tender, and non-distended with positive bowel sounds. Skin: Warm and dry. No rash or lesions on limited exam. Extremities: No cyanosis, clubbing, or edema. Radial and pedal pulses intact. Neurological: Alert and oriented. Cranial nerves 2-12 are grossly intact. No gross focal deficits to casual conversation. Psychiatric: Pleasant and cooperative with normal mood and affect. Judgment and insight intact. DS: Data Data Completed and Pending Labs on day of discharge: Labs from last 24 hours 09/29/23 05:18 WBC 17.0 H RBC 3.78 L Hgb 12.1 L Hct 37.1 L MCV 98.1 MCH 32.0 MCHC 32.6 RDW
[2023-09-30 17:10] LABS: Pneumococcal Antigen Urine Not Detected (Not Detected)
[2023-10-01 02:01] LABS: Legionella pneumophila Ag Ur Not Detected (Not Detected)
== END 2023-09-29 11:03 | disposition home or self-care (01) | DRG 190 ==
LOC: ANHED 14:26 → ANH3MEDSUR 21:16
PROVIDERS: Emergency Medicine; Admitting Provider Internal Medicine; Emergency Provider Emergency Medicine; Visit Provider Nurse Practitioner
DX: J44.0 Chronic obstructive pulmonary disease with (acute) lower respiratory infection (principal); J18.9 Pneumonia, unspecified organism; J93.9 Pneumothorax, unspecified; R91.1 Solitary pulmonary nodule; F17.210 Nicotine dependence, cigarettes, uncomplicated; F10.20 Alcohol dependence, uncomplicated; Z20.822 Contact with and (suspected) exposure to COVID-19
CPT/HCPCS: 36415; 71046; 74176; 80053; 83690; 84484; 85025; 85380; 85610; 85730; 87070; 87205; 87449; 87637; 87899; 93005; 93306; 94640; 96361; 96374; 96375; 99285; A9270; J1650; J1885; J1956; J2270; J2405; J2930; J7030; J7512

== ENCOUNTER 2023-10-24 08:44 | Outpatient (CLI) | payer OTHER, SELFPAY ==
--- NOTE | ~2023-10-24 | XR_ITS ---
Clinical Indication: Pneumonia PA and lateral views of the chest: Comparison: 09/29/2023 Findings: The lungs are clear, without evidence of focal consolidation or pleural effusion. Probable COPD. Cardiomediastinal silhouette is within normal limits. Bones and soft tissues are unremarkable. Impression: Clear lungs. Probable COPD. Reviewed, dictated and finalized at location . 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 Probable COPD.
== END 2023-10-24 08:45 | disposition home or self-care (01) ==
LOC: ANHIMG 08:47
PROVIDERS: Visit Provider Nurse Practitioner Family
DX: J18.9 Pneumonia, unspecified organism (principal)
CPT/HCPCS: 71046

== ENCOUNTER 2024-02-08 08:54 | Emergency (ER) | payer OTHER, SELFPAY ==
--- NOTE | ~2024-02-08 | XR_ITS ---
XR chest 2V DATE: 02/08/2024 09:19 INDICATION: Cough for one month. Right chest pain with inspiration. Decreased pO2. TECHNIQUE: 2 views COMPARISON: October 24, 2023 2 view chest FINDINGS: Mild right pneumothorax; the right lung apex is down 2.6 cm. Bilateral hyperinflation suggesting obstructive airways disease. No pulmonary infiltrate or consolida tion, pleural effusion or pulmonary vascular congestion. Normal heart size. Aortic arch calcification. Included skeletal structures are unremarkable. IMPRESSION: Mild right pneumothorax Bilateral hyperinflation suggesting COPD; no active cardiopulmonary disease Dr. Meyers telephoned the report of right pneumothorax on 02/08/2024 at 0930 hours to Express Care Nurse Practitioner Deb Reviewed, dictated and finalized at location A.
[2024-02-08 09:09] VITALS: BP 124/73; PULSE 89; RESP 16; TEMP 36.9; O2SAT 100
--- NOTE | 2024-02-08 09:13 | ED.URI ---
HPI - URI/Sore Throat General Chief Complaint: Upper Respiratory Infection Stated Complaint: Body Pain Time Seen by Provider: 02/08/24 09:36 Source: patient and RN notes reviewed Mode of arrival: ambulatory Limitations: no limitations History of Present Illness HPI Narrative: 64-year-old male presents with concern for chronic cough, pain in his right side/axillary area for 3 days. Reports he has shortness of breath with coughing. He has a history of cigarette smoking, COPD, chronic alcohol use, pneumonia, pneumothorax. He denies any current fever, body aches, chills, sweats. Reports he had chills 3 days ago. He has not taken any medications for his symptoms. MD elicited complaint: cough and other (Chest pain) Related Data Home Medications Medication Instructions Recorded Confirmed No Home Medications 02/08/24 02/08/24 Allergies Allergy/AdvReac Type Severity Reaction Status Date / Time cephalexin AdvReac Mild Hives Verified 02/08/24 09:24 Iodinated Contrast Media AdvReac Mild Hives Verified 02/08/24 09:24 Contrast Media AdvReac Mild HIVES Uncoded 02/08/24 09:24 Review of Systems Review of Systems: CONSTITUTIONAL: Denies malaise, sweats, or fever. Reports chills EYES: Denies visual changes, redness, or discharge. ENT: Denies rhinorrhea, congestion, sinus pain, otalgia and sore throat. CARDIOVASCULAR: Denies palpitations, or edema. RESPIRATORY: Reports cough, dyspnea, right side and chest pain GASTROINTESTINAL: Denies abdominal pain, nausea, vomiting, diarrhea SKIN: Denies rash or itching. MUSCULOSKELETAL: Denies myalgia. NEUROLOGIC: Denies headache. All systems reviewed & are unremarkable except as noted in HPI and below [facility] Family History Family History Father Family history of malignant neoplasm of brain Family history of lung cancer Sibling Patient's sister is in good health Diabetes mellitus Malignant neoplasm of prostate Mother Cerebrovascular accident Family history of Alzheimer's disease Social History Social History Smoking packs per day: 0.5 Smoking cigarettes per day: 10.0 Years smoked: 30 Smoking pack-years: 15.00 Smoking status: Current every day smoker Tobacco type: cigarettes Alcohol intake: current Drinks per week: 15 Substance use: never Substance use type: does not use Do You Feel Safe in your Home?: Yes Lack of Transportation: YES Lack of Food: Never True Current Housing: I Have Housing Concerned About Future Housing: No Difficulty Paying Gas/Electric Bills: No Difficulty Paying for Meds: No Currently Unemployed: No Education: High School Diploma/GED Difficulty w/ Childcare or Family Care: No Spiritual care concerns: No Comments At time of signature, agree with nursing past medical, surgical, social and family history. There is no relevant family history pertinent to the presenting complaint Exam Narrative: GENERAL: Nontoxic-appearing, well-nourished, and in no acute distress. HEAD: Normocephalic EYES: PERRLA, conjunctivae clear ENT: Nares clear. Mucous membranes moist. NECK: Supple. No lymphadenopathy CHEST: Scattered inspiratory and expiratory reason rhonchi, breath sounds equal. No rales, or stridor. No respiratory distress, speaks in full sentences. HEART: Regular rate and rhythm. No murmur heard. SKIN: Warm, dry, no rash. NEURO: Alert and oriented x3. PSYCH: Normal mood and affect Course Course Emergency Course: Patient is aware of, understands and agrees to reason to the transferred to the emergency room. Patient agrees to proceed directly to the emergency department. Portions of this record may have been created with voice recognition software Level of Care: Express Care Visit Vital Signs Vital signs: Vital Signs Temperature 98.4 F 02/08/24 09:09 Pulse Rate 89 02/08/24 09:09 Res
== END 2024-02-08 09:49 | disposition short-term general hospital (02) ==
PROVIDERS: Emergency Provider Nurse Practitioner
DX: J93.9 Pneumothorax, unspecified (principal); F17.210 Nicotine dependence, cigarettes, uncomplicated; J44.9 Chronic obstructive pulmonary disease, unspecified
CPT/HCPCS: 71046; 99212; G0463

== ENCOUNTER 2024-02-08 10:20 | Emergency (ER) | payer OTHER, SELFPAY ==
[2024-02-08] VITALS (15 sets, daily range): BP systolic 121–167; BP diastolic 72–88; PULSE 74–88; RESP 9–17; TEMP 36.7; O2SAT 98–100
--- NOTE | ~2024-02-08 | CT_ITS ---
EXAMINATION:CT diagnostic chest wo con DATE: 02/08/2024 15:08 INDICATION: Right pneumothorax. TECHNIQUE: Computed tomography (CT) of the chest was performed without intravenous contrast. Automate d exposure control and iterative reconstruction technique were employed. The dose-length product (DLP ) was 179.28 mGy-cm. COMPARISON: Chest CT 06/11/2023 FINDINGS: There is mild emphysema. There is mild atelectasis in right lung. There is a small right hy dropneumothorax. There is mild scarring at lung left lung apex. The heart size is normal. There are c oronary artery calcifications. No pericardial effusion. There is mild thoracic spondylosis. IMPRESSION: 1. Small right hydropneumothorax, less than 10% percent of lung volume. 2. Mild emphysema. Reviewed, dictated and finalized at location E.
--- NOTE | 2024-02-08 10:29 | ECG_ITS ---
[facility] [address] Test Date: 2024-02-08 Pat Name: Lars Lopez Department: Room: Gender: Senior Medical Transcriptionist: SHAYY : 1960 Requested By: Sherlyn Preciado Order Number: [id number] Reading MD: Alberto Kern M.D. Measurements Intervals Pavilion Rate: 85 P: -26 [place]: 140 QRS: 88 QRSD: 97 T: 74 QT: 341 QTc: 408 Interpretive Statements SINUS RHYTHM SEPTAL MYOCARDIAL INFARCTION , OF INDETERMINATE AGE [40+ ms Q WAVE IN V1/V2] No previous ECG available for comparison Electronically Signed On 02-08-2024 14:18:53 CDT by Alberto Kern M.D.
--- NOTE | 2024-02-08 13:13 | ED.CHESTPAIN ---
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 Not on medications/inhalers at baseline for COPD. He had lateral right sided chest pain today and was concerned it might be a PTX as he had one earlier this year though states that at that time he had significant chest pain and shortness of breath and was found to have a pneumonia. He states it was not as bad today and in fact states the chest pain and shortness of breath resolved even prior to the application of the non rebreather. Baseline has a chronic cough productive of clear phlegm ; denies any changes from this recently. Current smoker. He does not have a PCP but does see hospital corpsman (had seen [place] in Dr Palacios's office). Related Data Allergies Allergy/AdvReac Type Severity Reaction Status Date / Time cephalexin AdvReac Mild Hives Verified 02/08/24 09:24 Iodinated Contrast Media AdvReac Mild Hives Verified 02/08/24 09:24 Contrast Media AdvReac Mild HIVES Uncoded 02/08/24 09:24 [facility] Past Medical History Medical History Pneumothorax, right 09/26/2023 Family History Family History Father Family history of malignant neoplasm of brain Family history of lung cancer Sibling Patient's sister is in good health Diabetes mellitus Malignant neoplasm of prostate Mother Cerebrovascular accident Family history of Alzheimer's disease Social History Social History Smoking packs per day: 1 Smoking cigarettes per day: 20.0 Years smoked: 30 Smoking pack-years: 30.00 Smoking status: Current every day smoker Tobacco type: cigarettes Alcohol intake: current Drinks per week: 15 Substance use: never Substance use type: does not use Do You Feel Safe in your Home?: Yes Lack of Transportation: YES Lack of Food: Never True Current Housing: I Have Housing Concerned About Future Housing: No Difficulty Paying Gas/Electric Bills: No Difficulty Paying for Meds: No Currently Unemployed: No Education: High School Diploma/GED Difficulty w/ Childcare or Family Care: No Living arrangements: with family Additional living arrangements comments: Lise Occupation/Education: occupation Additional 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 HEAD: Normocephalic, atraumatic. EYES: Non injected, non icteric ENT: Nares clear, no rhinorrhea or epistaxis. NECK: Supple. Trachea midline. CHEST: Speaking in full sentences. No respiratory distress. Coarse wheezes bilateraly. No absent breath sounds. No subcutaneous emphysema/crepitus. HEART: Regular rate and rhythm. . ABDOMEN: Soft, nondistended. EXTREMITIES: Normal range of motion. No edema. SKIN: Warm, dry, no rash. NEURO: No focal deficits. Alert and oriented x3. PSYCH: Normal mood and affect. Course Vital Signs Vital signs: Vital Signs Oxygen Delivery Room Air 02/08/24 10:25 Temperature 98.0 F 02/08/24 10:29 Pulse Rate 80 02/08/24 17:30 Respiratory Rate 16 02/08/24 17:30 Blood Pressure 138/80 02/08/24 17:30 Pulse Oximetry 100 02/08/24 17:30 Oxygen Delivery Non-Rebreather Mask 02/08/24 11:15 Oxygen Flow Rate 15 02/08/24 11:15 MDM - Chest Pain MDM Narrative Medical decision making narrative: Patient presents from urgent care for a small right sided PTX. Hx COPD and current smoker. He had experienced acute onset chest pain and shortness of breath this mo
[2024-02-08] MEDS: predniSONE 20 MG TABLET 60 MG PO (13:32)
[2024-02-08] MEDS: IPRATROPIUM 0.5 MG/ALBUTEROL SULFATE 2.5 MG AMPUL.NEB 3 ML INHALATION (13:45)
[2024-02-08] MEDS: ALBUTEROL SULFATE NEB 2.5 MG/3 ML INH INHALATION (13:45)
[2024-02-08 14:04] LABS: Basophils Absolute Auto 0.1 K/mm3 (0.0-0.1); Basophils Percent Auto 0.5 % (0.2-1.2); Eosinophils Absolute Auto 0.1 K/mm3 (0-0.3); Eosinophils Percent Auto 1.2 % (0-4.4); Hematocrit 42.5 % (42.0-52.0); Immature Granulocyte Absolute 0.03 K/mm3 (0.00-0.031); Immature Granulocyte Percent A 0.3 % (0-0.5); Lymphocytes Absolute Auto 2.17 K/mm3 (0.9-3.2); Lymphocytes Percent Auto 23.3 % (18.3-44.2); Mean Corpuscular HGB Conc 32.9 g/dl (32-36); Mean Corpuscular Hemoglobin 31.6 pg (26-34); Mean Corpuscular Volume 95.9 fl (80-100); Mean Platelet Volume 10.9 fl (7.4-10.4); Monocytes Absolute Auto 1.1 K/mm3 (0.1-0.6); Monocytes Percent Auto 11.4 % (2.6-8.5); Neutrophils Absolute Auto 5.9 K/mm3 (1.3-6.7); Neutrophils Percent Auto 63.3 % (45.5-73.1); Platelet Count Result 296 k/mm3 (150-375); Red Blood Count 4.43 M/mm3 (4.6-6.20); Red Cell Distribution Width 13.5 % (11.5-14.5); White Blood Count 9.3 K/mm3 (4.5-10.0)
[2024-02-08 14:16] LABS: Alanine Aminotransferase 15 U/L (6-50); Albumin Level 4.4 g/dL (3.5-5.1); Alkaline Phosphatase 83 U/L (38-126); Anion Gap 4 mmol/L (4-12); Aspartate Amino Transferase 21 U/L (17-59); Blood Urea Nitrogen 6 mg/dL (9-20); Calcium 9.2 mg/dL (8.4-10.2); Carbon Dioxide 29 mmol/L (22-30); Chloride 99 mmol/L (98-107); Estimated CRCL calculation 130 ml/min; Estimated Glomerular Filt Rate > 60; Glucose 96 mg/dL (65-110); Lipase 33 U/L (23-300); Potassium 4.3 mmol/L (3.4-5.0); Sodium 132 mmol/L (137-145)
[2024-02-08 14:26] LABS: Troponin I < 0.012 ng/mL (0.000-0.034)
[2024-02-08 14:46] LABS: D Dimer 0.46 ug/mL (<0.48)
== END 2024-02-08 17:30 | disposition home or self-care (01) ==
PROVIDERS: Emergency Provider Student in an Organized Health Care Education/Training Program
DX: J93.9 Pneumothorax, unspecified (principal); E87.1 Hypo-osmolality and hyponatremia; J44.1 Chronic obstructive pulmonary disease with (acute) exacerbation; F17.210 Nicotine dependence, cigarettes, uncomplicated
CPT/HCPCS: 36415; 71046; 71250; 80053; 83690; 84484; 85025; 85380; 93005; 94640; 99284; J7512

== ENCOUNTER 2024-10-06 08:20 | Emergency (ER) | payer OTHER, SELFPAY ==
--- NOTE | ~2024-10-06 | XR_ITS ---
EXAMINATION: XR chest 2V DATE: 10/06/2024 09:03 INDICATION: 3 weeks of cough TECHNIQUE: PA and lateral views of the chest were obtained. COMPARISON: Chest radiograph and CT dated 02/08/2024 FINDINGS: Consistent with pneumonia. Hyperexpansion of lungs with increased lucency in the upper lung zones con sistent with mild emphysema better appreciated on prior CT. There is mild biapical pleural-parenchyma l scarring. There are new airspace opacities in the bilateral lower lung zones most prominent in the right middle lobe. No pleural effusion or pneumothorax. The cardiomediastinal silhouette is normal. V isualized bones and soft tissues are unremarkable. IMPRESSION: 1. New airspace opacities in bilateral lower lung zones concerning for pneumonia. Recommend radiograp hic follow-up to resolution. 2. Emphysema. Reviewed, dictated and finalized at location B. TRAFFIC SYSTEMS TECHNICIAN IMPRESSION: 1. New airspace opacities in bilateral lower lung zones concerning for pneumoni a. Recommend radiographic follow-up to resolution. 2. Emphysema.
[2024-10-06 08:44] VITALS: BP 151/82; PULSE 98; RESP 20; TEMP 37; O2SAT 98
--- NOTE | 2024-10-06 08:47 | ED.URI ---
HPI - URI/Sore Throat General Chief Complaint: Upper Respiratory Infection Stated Complaint: flu like symptoms Time Seen by Provider: 10/06/24 09:15 Source: patient, RN notes reviewed and old records reviewed Mode of arrival: ambulatory Limitations: no limitations History of Present Illness HPI Narrative: patient presents with complaints of cough for 3 weeks. He reports that he has not taken his temperature, but he is having chills and night sweats. His cough is minimally productive, he states the cough has become painful. He reports that his had the flu a few weeks ago, he believes he probably caught the flu from her and now has pneumonia. 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 He has not been using his albuterol inhaler because he states it makes his cough worse. He denies any shortness of breath. He voices no other concerns or complaints at this time Related Data Allergies Allergy/AdvReac Type Severity Reaction Status Date / Time cephalexin AdvReac Mild Hives Verified 10/06/24 08:42 Iodinated Contrast Media AdvReac Mild Hives Verified 10/06/24 08:42 Review of Systems Review of Systems: All systems reviewed & are unremarkable except as noted in HPI and below Constitutional: Constitutional: Reports no additional constitutional complaints, Reports chills, Reports excessive sweating and Reports lethargy ENT: Reports system reviewed and no additional complaints, except as documented Cardiovascular: Cardiovascular: Reports no additional cardiovascular complaints Respiratory: Respiratory: Reports no additional respiratory complaints, Reports chest congestion, Reports cough, Reports excessive phlegm production, Reports pain with cough and Reports wheezing Gastrointestinal: Gastrointestinal: Reports no additional gastrointestinal complaints [facility] Past Medical History Medical History Pneumothorax, right 09/26/2023 Family History Family History Father Family history of malignant neoplasm of brain Family history of lung cancer Sibling Patient's sister is in good health Diabetes mellitus Malignant neoplasm of prostate Mother Cerebrovascular accident Family history of Alzheimer's disease Social History Social History Smoking packs per day: 1 Smoking cigarettes per day: 20.0 Years smoked: 30 Smoking pack-years: 30.00 Smoking status: Current every day smoker Tobacco type: cigarettes Alcohol intake: current Drinks per week: 15 Substance use: never Substance use type: does not use Do You Feel Safe in your Home?: Yes Lack of Transportation: YES Lack of Food: Never True Current Housing: I Have Housing Concerned About Future Housing: No Difficulty Paying Gas/Electric Bills: No Difficulty Paying for Meds: No Currently Unemployed: No Education: High School Diploma/GED Difficulty w/ Childcare or Family Care: No Living arrangements: with family Additional living arrangements comments: Lise Occupation/Education: occupation Additional occupation/education comments: Works at a [employer] Spiritual care concerns: No Comments At the time of my signature, I reviewed and agree with the nursing past medical, surgical, social, and family history. There is no relevant family history pertinent to the patient complaint. Exam Const: General: cooperative, no acute distress, alert, awake and uncomfortable Orientation/consciousness: oriented to person, oriented to place and oriented to time HENMT: Head: normal to inspection Mouth: Yes moist mucous membranes Resp: Effort & Inspection: normal respiratory effort and able to speak in complete sentences Auscultation: clear to auscultation bilaterally, no crackles, no rales, rhonchi left lower and right lower and no wheezes Cardio: Palpation: normal PMI Rate: regular rate Rhythm: regular rhythm Heart sounds: S1 normal heart sound present and S2 normal heart sound present Neuro: General: oriented to person, oriented to place and oriented to time Cranial nerves: Yes CN's II-XII intact bilaterally Psych: Appearance: grossly normal Thought process: Normal thought process present Insight: Good insight present (Psych) Judgement: Good judgement present (Psych) Course Course Level of Care: Express Care Visit Vital Signs Vital signs: Vital Signs Temperature 98.6 F 10/06/24 08:44 Pulse Rate 98 10/06/24 08:44 Respiratory Rate 20 10/06/24 08:44 Blood Pressure 151/82 H 10/06/24 08:44 Pulse Oximetry 98 10/06/24 08:44 Oxygen Delivery Room Air 10/06/24 08:44 Temperature 98.6 F 10/06/24 08:44 Pulse Rate 98 10/06/24 08:44 Respiratory Rate 20 10/06/24 08:44 Blood Pressure 151/82 H 10/06/24 08:44 Pulse Oximetry 98 10/06/24 08:44 Oxygen Delivery Room Air 10/06/24 08:44 Reviewed MDM - URI/Sore Throat MDM Narrative Medical decision making narrative: history and exam as well as x-ray consistent with pneumonia. Patient was advised to follow with his corporate affairs manager and his primary care provider. Strict emergency department precautions discussed. He is nontoxic appearing and stable for discharge home on p.o. antibiotic and steroid therapy. He is encouraged to use bronchodilators as directed. Discharge instructions reviewed with patient, as well as provided in writing per nursing staff. The instructions also include specific and strict return/GO TO THE ER as well as f/u information. All questions have been answered, and the patient deny any further questions with discharge and discharge plan. Some parts of this dictation were generated by voice recognition software and may contain typographical and/or grammatical inaccuracies. Differential Diagnosis Differential diagnosis: Likely upper respiratory infection, otitis media and viral infection Medical Records Attestation: I reviewed the patient's medical records. Imaging Data Attestation: I personally reviewed and interpreted this imaging study as follows: My impression: bilateral lower lobe pneumonia Radiologist's impression: [address] [place] [address] XRay Report Signed Patient: Sia Humphrey : 04/17/2011 MR#: [id number] Age: 13 Acct:[id number] Loc: [facility] ADM Date: 10/06/24Attending Dr: Ordering Physician: Karuna Loaiza FNP Date of Service: 10/06/24 Procedure(s): XR finger 3rd RT min 2V Accession Number(s): [id number] cc: Karuna Loaiza FNP; Hemalatha,Anila Kay~ EXAMINATION: XR finger 3rd RT min 2V DATE: 10/06/2024 08:55 INDICATION: Right third digit pain post trauma TECHNIQUE: Dorsal palmar, lateral and 2 oblique views of the right third digit were obtained COMPARISON: Right hand radiographs dated 05/22/2024 FINDINGS: Alignment is normal. No fracture. Joint spaces are normal. Mild soft tissue swelling about the third proximal interphalangeal joint. IMPRESSION: 1. No osseous abnormality. Reviewed, dictated and finalized at location B. INUOUS MINING MACHINE OPERATOR Please be advised this is a medical document. It is intended for qypv-zz-evam communication. It is written in medical language and may contain unfamiliar abbreviations or verbiage. Medical documents are intended to carry relevant information, facts as evident, and the clinical opinion of the practitioner at the time of the encounter. This report may have been done utilizing a voice recognition system. Attempts have been made to correct errors. However, there may be uncorrected grammatical, spelling, and recognition errors present. The file time of this note does not necessarily represent the time of service. Dictated By: Franky Stephens MD 10/06/24 0903 Signed By: <Electronically signed by Franky Stephens MD in OV> Discharge Plan Discharge Clinical Impression: Pneumonia Qualifiers: Pneumonia type: due to unspecified organism Laterality: bilateral Lung location: lower lobe of lung Qualified Code(s): J18.9 - Pneumonia, unspecified organism Patient Disposition: Home, Self-Care Condition: Stable Instructions: Antibiotic Form, Pneumonia (ED) Additional Instructions: take all medications as prescribed. Follow-up with primary care provider. Emergency department for any new or worse symptoms. Please call your corporate affairs manager to make a follow-up appointment as soon as possible. You do have pneumonia, further imaging is recommended Patient Language: Greek Prescriptions: New amoxicillin-pot clavulanate 875-125 mg tablet 1 tablet PO Q12H Qty: 20 0RF azithromycin 250 mg tablet See Rx Instructions .ROUTE .COMPLEX Qty: 6 0RF Rx Instructions: For 250 mg dose pack: take 500 mg today (day 1), then 250 mg for 4 days (days 2-5) prednisone 50 mg tablet 50 mg PO DAILY Qty: 5 0RF albuterol sulfate [Ventolin HFA] 90 mcg/actuation HFA aerosol inhaler 2 puff inhalation QID PRN (Reason: shortness of breath or wheezing) Qty: 8.5 0RF No Action albuterol sulfate 90 mcg/actuation HFA aerosol inhaler 1 - 2 inh inhalation Q4-6H PRN (Reason: shortness of breath or wheezing) Qty: 8.5 2RF tiotropium bromide 2.5 mcg/actuation mist for inhalation 2.5 mcg/actuation mist 0RF Follow-up/Referrals: PHYSICIAN,ELECTRONICS COMMODITY MANAGER [Primary Care Provider] - Richmond Mcdaniel, WASTEWATER TREATMENT PLANT INSTRUCTOR [Advanced Practice Nurse] - 3 Days (pneumonia) Stand Alone Forms: Work/School Release IP Time of Disposition: 09:23
--- OUTSIDE RECORDS SUMMARY | 2024-10-06 08:47 | XMS_ITS | Data Portability ---
Author Organization [facility], Main Office Address [address] [place] [address] Care Team Providers Care Quill Layer Name Role Phone MANUELA BLANCO Commercial Teller [phone] Assessment Encounter Date Assessment Date Assessment LastModified by Organization Details LastModified Time 01/09/2023 01/09/2023 Impression: Patient has olecranon bursitis of the right elbow. I have discussed options with him. It is my preference that he would avoid any pressure on the elbow and has to take great care to avoid leaning on the elbow or resting the arm even on something soft that comes in contact with the olecranon area. As such, I would recommend that he stop using the neoprene elbow sleeve which may be exacerbate this area. He is in getting a paycheck currently and wants to get back to work as soon as possible and I discussed with him the option of aspiration injection with him and he would like to proceed with that. I have discussed with him the down side that option which is the possible complication of developing infection from the injection. After ChloraPrep prep, 8 cc of serosanguineous fluid were removed. 10 mg of Kenalog and 1 cc of 0.5% ropivacaine were injected. I have discussed signs and symptoms of infection with him if he develops any problems with this he will call immediately. We will keep him off work for the next 2 weeks. He will avoid repetitive movements of his elbow also which can exacerbate this problem. I explained to him that if he has continued recurrences, surgical excision of the bursal sac can be an option as well. I will see him back in 2 weeks assess his progress. I have given him a prescription for Bactrim to take for the next 2 days. He is at a little bit higher risk for infection problems because of his smoking history. 30 minutes were spent total care this patient more than half the time spent in ptfu-wo-jart care. Not available 01/09/2023 09:42:31 01/23/2023 01/23/2023 Patient returns. We aspirated his right elbow olecranon bursa 2 weeks ago in give him a cortisone shot. He has been off work. He returns today with complete resolution of bursal effusion on the right elbow. There is no redness swelling or warmth. On palpation, I can feel that he does have some thickened bursal tissue and the skin but is minimally tender. He feels he is ready to return to work we will release him to do so. I have cautioned him to avoid leaning on the elbow or bumping the olecranon which can cause recurrence. Hopefully this will be a isolated incident with this problem and not be a recurring problem. I will be happy to see him back as needed. Not available 01/23/2023 08:53:29 04/03/2023 04/03/2023 Patient returns for follow-up of his right elbow. We last saw him in January have which time the right olecranon bursal effusion had resolved completely 2 weeks following a cortisone shot in the bursa. That was on 2022. He has continued to work full duty. He complains of diffuse right elbow soreness with different maneuvers. He has soreness at the olecranon bursa the triceps insertion the medial epicondyle lateral epicondyle and occasionally in the anterior elbow antecubital fossa area. He continues to work in some of his work is heavy. On exam today is full range of motion right elbow 0-145 he has no redness swelling or warmth. He has no bursal fluid all. He has full pronation supination. He has mild tenderness at the point the olecranon, the triceps insertion, lateral epicondyle and medial epicondyle. No antecubital fossa tenderness today. insertion of the biceps tendon is palpable and nontender is 5/5 elbow flexion supination pronation extension wrist dorsiflexion wrist palmar flexion strength today all causing mild discomfort diffusely around the elbow. Mild discomfort with middle finger extension test posteriorly. I suspect this is overuse tendinitis in the various aspects of his right elbow. the report.e had x-rays at an outside facility from 12/22 which showed no significant abnormalities except for small enthesophytes by the report. Recommend a course of therapy for him for gentle stretching exercises and modalities and I have suggested he try diclofenac gel to elbow 4 times a day. He is very thin and if it any patient were to have benefit from Voltaren gel I would think he would in this circumstance. Is I will see him back if he has continued problems and if he does have recommend getting an MRI scan of the right elbow to rule out other pathology as his symptoms are somewhat diffuse and nonspecific. 20 minutes were spent total care this patient half the time spent in odqi-ev-aunc care. Is Not available 04/03/2023 09:06:05 Plan of Treatment Reminders Order Date Submit Date Provider Last Modified By Organization Details Last Modified Time Details Appointments None recorded. Lab None recorded. Referral None recorded. Procedures injection/a spiration joint/bursa (PROC) - in office procedure, administere d by provider 2022 023 [email or web address] In-Office Order, Internal Use Only DO Not Attach Compendium DO Not Attach Compendium, Do Not Delete/merge, [id number] 09:31:23 Surgeries None recorded. Imaging None recorded. Medication Orders Kenalog 10 mg/mL suspension for injection 2022 023 [facility] [address] [place], [address], 3 08:36:51 ropivacaine (PF) 5 mg/mL (0.5 %) injection solution 2022 023 [email or web address] [facility] [address] [place], [address], 3 08:37:05 Patient TargetsNo targets recorded. Patient InstructionsNo instructions recorded. Reason for Referral None Reported. Results Created Date Observation Date Name Description Value Unit Range Abnormal Flag Note LastModifiedBy Organization Detail LastModifiedTime 01/10/2012/22/2022 XR, elbow , 3 or more view No observ ation record ed. [email or web address] Not Available 2022 17:52:43 Result Notes None recorded. Problems Name Problem SNOMED Code Status Onset Date Resolution Date Notes Provider Name and Address Organization Details Recorded Time Shoulder joint pain 332037265 Active Not Available [facility] 3 16:28:02 Pain of right elbow joint [id number] 109 Active 2022 JACKY Cleveland, [facility] [employer] [facility] 3 08:47:12 Problem Notes None recorded. Procedures Surgical History None recorded. Imaging Results Imaging Date Name Status LastModified by Organiz ation Details LastModified Time 12/22/2022 XR, elbow, 3 or more view completed [email or web address] Information not available 01/09/2023 17:52:43 Procedure Notes None recorded. Medical Equipment None Reported. Allergies Allergen ID Allergen Name Allergen Category Reaction Reaction Severity Criticality Documentation Date Start Date Code Code System Note Provider Name and Address Organization Details Recorded Time 77867 Keflex medicatio n Not available Not available Not available 01/09/202310876 7 RxNorm Lula Skinner, FIDELINA ramirez, [facility] [employer] [facility] 3 10:07:26 Medications Name Sig Start Date Stop Date Status Note LastModified by Organization Details LastModified Time azithromyci n 250 mg tablet 04/03 completed Not Available Not Available Not Available ibuprofen 800 mg tablet 04/03 completed Not Available Not Available Not Available hydrocodone 5 mg-acetamin ophen 325 mg tablet 04/03 completed Not Available Not Available Not Available prednisone 20 mg tablet TAKE 2 TABLETS (40 MG) BY MOUTH ONCE DAILY FOR 5 DAYS 04/03 completed Not Available Not Available Not Available sulfamethox azole 800 mg-trimetho prim 160 mg tablet TAKE 1 TABLET BY MOUTH TWICE DAILY TODAY AND TOMORROW 04/03 completed Not Available Not Available Not Available Kenalog 10 mg/mL suspension for injection in office procedure , administe red by provider 04/[address] [facility]: 0003- [id number]- 20 Not Available Not Available Not Available levofloxaci n 500 mg tablet 04/03 completed Not Available Not Available Not Available naproxen 500 mg tablet TAKE 1 TABLET BY MOUTH TWICE DAILY NEEDED FOR PAIN FOR 7 DAYS 04/03 completed Not Available Not Available Not Available ropivacaine (PF) 5 mg/mL (0.5 %) injection solution in office procedure , administe red by provider 04/[address] [facility] [phone] [phone] Not Available Not Available Not Available ID NOW COVID-19 Test Kit TEST DIRECTED TODAY 04/03 completed Not Available Not Available Not Available Vitals None Recorded Social History None recorded. Functional Status None recorded. Mental Status None recorded. Family History Nothing Reported. Medical History No medical history recorded. Past Encounters Encounter ID Performer Location Encounter Start Date Encounter Closed Date Diagnosis/Indication Diagnosis SNOMED-CT Code Diagnosis ICD10 Code Diagnosis Note [id number] Franky Todd MD [facility] [address] [place] [address] 01/09/2023 08:33:42 01/09/2023 10:06:58 Pain of right elbow joint [id number] M25.521 [id number] Franky Todd MD [facility] [place] [address] [place] [address] 01/23/2023 08:26:41 01/23/2023 08:57:59 Pain of right elbow joint [id number] 0467799 M25.521 [id number] Franky Todd MD [facility] [place] [address] [facility] [address] [place] [address] 04/03/2023 08:34:55 04/03/2023 09:11:15 Pain of right elbow joint 2615811934 0467730 M25.521 Health Concerns Section Related Observation LastModified by Organization Detai ls LastModified Time None Recorded Concern Status LastModified by Organization Details LastModified Time None Recorded Advance Directives Directive None Recorded Payers Encounter Date Sequence Insurance Name Policy Number Policy Garza Covered Member ID Garza Member ID Guarantor Name 01/09/2023 [employer] [place] [employer] Lars Lopez 01/23/2023 [employer] Lars Lopez 04/03/2023 [employer] Lars Lopez Notes Date Note Type Note Provider Name and Address Organization Details Recorded Time 01/09/2023 text/html Patient is a 62-year-old male who presents for evaluation of his right elbow. 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 Three weeks ago approximately he was running to grab a turkey and his elbow popped when he reached for it and then he did again a popped again and after this he developed her prominent swelling of his olecranon bursa. He went to the urgent care twice. First time they removed 15 cc of fluid the 2nd time 10 cc of fluid was removed. They said the fluid looked good so they did not send it for culture. He had x-rays at the 2nd visit to the urgent care of the right elbow which showed no abnormality and I reviewed these. Tiny enthesophytes at the epicondyles noted. Patient denies have any trauma or bumping the elbow. They advised him to wear a neoprene elbow wrap but she has been doing. He has been off work trying to rest it for the last 2 weeks. His past medical history is significant for allergy to Keflex. He is allergic to dye CT dye. He does smoke and I have advised him to stop smoking at this time completely which will reduce his risk for severe medical complications. Franky Todd MD [address] [place] [address], [place], [address], [facility] [employer] 01/09/2023 09:42:43
--- OUTSIDE RECORDS SUMMARY | 2024-10-06 08:47 | XMS_ITS | Continuity of Care Document ---
Author Organization [facility] Address [address] [place] [address] Phone Care Team Providers Care Bevel Gear Generator Operator Name Role Phone Rafael Lassiter MD Unavailable Unavailable Allergies, Adverse Reactions, Alerts Substance Reaction Status Criticality CEPHALEXIN MONOHYDRATE Active No In formation WARNIN allergy(ies) could not be collected because the type is not supported. Please contact the source practice for further details. Medications Medication Instructions Dosage Effective Dates (start - stop) Status Comments No Drug Therapy Prescribed Procedures Procedure Date Medical Testimony Deposition Prolonged serv, w/o contact, 1st hr Special Narrative Report X-ray exam shoulder minimum 2 views Independent Medical Examination KIERA Prolonged serv, w/o contact, 1st hr Advance Directives Directive Yes / No Effective Date File Name No Information Encounters Encounter Description Practice Location Reason(s) For Visit Diagnoses Date Provider Providers Copied on Encounter [facility], [address] [address], [place], [place], [id number], [place] tel:[phone] [facility] No Information 5 Sravani Hall. [address], [place], [place], [id number] , [place]. tel: [phone] Prolonged serv, w/o contact, 1st hr [facility], [address], [id number], [phone] [facility] No Information 4 Sravani Hall. [address] [facility], [address], [id number] , [place]. tel: [phone] Independent Medical Examination KIERA [facility], [address], [id number], tel:[phone] [facility] 4 Sravani Hall. [address] [facility], [address] [address], [place], [place], [id number] , [place]. tel: [phone] Family History Family Member Type Diagnosis Age At Onset Brother Problem (finding) diabetes melli tus in first degree relative Mother Problem (finding) Cardiovascular disease Mother Problem (finding) hypertension Mother Problem (finding) Arthritis Father Problem (finding) Cancer, unknown Immunizations Vaccine Date Status Comments Flu (split) (3 yrs or older) refused Source: Other Provider Payers Payer name Insurance type Covered constitution party ID Authoriza tion(s) No Information Social History Type Description Quantity Date Captured Comments Sex Male Smoking Status No Information Chief Complaint And Reason For Visit No Information Reason For Referral Reason For Referral No Information Plan Of Treatment Date Type Action Status Referral Ordered: X-ray exam shoulder minimum 2 views RT ordered Patient Education Shoulder Arthritis: Exe rcises completed History Of Present Illness Encounter Date Complaint History Of Prese nt Illness No Information Functional Status Date Functional Assessmen t No Information Medications Administered Medication Instructions Dosage Effective Dates (start - stop) Status Comments No Drug Therapy Prescribed Instructions Date Instruction Additional Infor mation No Information Assessments Type Assessment Date No Information Patient Care Teams Name Effective Dates (start - stop) Status Members No Information
--- OUTSIDE RECORDS SUMMARY | 2024-10-06 08:47 | XMS_ITS | Clinical Summary ---
Author Organization [facility] Address [address] [place] [address]. [place], [place] [address] [place] [address] Care Team Providers Care Bleach Supervisor Name Role Phone Unavailable Primary Care Provider Unavailabl e Social History Tobacco Use Types Packs/Day Years Used Date Smoking Tobacco: Never Assessed Sex and Gender Information Value Date Recorded Sex Assigned at Not on file Legal Sex Male 7:59 PM CDT Gender Identity Not on file Sexual Orientation Not on file Last Filed Vital Signs Vital Sign Reading Time Taken Comments Blood Pressure 140/82 05/19/2012 9:37 AM CDT Pulse 91 03/06/2012 2:00 PM CDT Temperature - - Respiratory Rate - - Oxygen Saturation - - Inhaled Oxygen Concentration - - Weight 81.6 kg (180 lb) 03/21/2012 9:00 AM CDT Height 188 cm (6' 2 ) 03/21/2012 9:00 AM CDT Body Mass Index 23.11 03/21/2012 9:00 AM CDT Plan of Treatment Health Maintenance Due Date Last Done Comments Colorectal Cancer Screening Colonoscopy (10 Years) 1960 Annual Physical 01/07/1963 Hepatitis C 01/07/1978 DTaP, Tdap and Td Vaccines ( 1 - Tdap) 01/07/1979 Zoster Vaccines (1 of 2) 01/07/2010 COVID-19 Vaccine ( - 2023-2 5 season) 2024 Influenza Adult (#1) 2024 RSV Immunization or 60+ Years (1 - 1-dose 75+ series) 01/07/2035 Meningococcal B Vaccine Aged Out No l onger eligible based on patient's age to complete this topic Meningococcal Vaccine Aged Out No juan ramon marvin eligible based on patient's age to complete this topic Pneumococcal Vaccine: Pediat rics (0 to 5 Years) and At-Risk Patients (6 to 64 Years) Aged Out No longer eligible b ased on patient's age to complete this topic RSV Immunizations Under 20 Months Aged Out No longer eligible based on patient's age to complete this topic
--- OUTSIDE RECORDS SUMMARY | 2024-10-06 08:47 | XMS_ITS | Clinical Summary ---
Author Organization [facility] Care Team Providers Care Clinical Faculty Name Role Phone Unavailable Primary Care Provider Unavailabl e Social History Tobacco Use Types Packs/Day Years Used Date Smoking Tobacco: Never Assessed Sex and Gender Information Value Date Recorded Sex Assigned at Not on file Legal Sex Male 9:01 AM CDT Gender Identity Not on file Sexual Orientation Not on file Plan of Treatment Health Maintenance Due Date Last Done Comments Hepatitis C Virus (HCV) Screening 1960 TdaP Immunization 1960 Colonoscopy 01/07/2005 Colorectal Cancer Screening 01/07/2005 Cologuard 01/07/2010 Immunochemical Fecal Occult Blood 01/07/2010 Pneumococcal Immunization (5 0+ years) (1 of 1 - PCV) 01/07/2010 Zoster Immunization (1 of 2) 01/07/2010 PSA Discussion 01/07/2015 Influenza Immunization (#1) 2024 SARS-COV-2 Immunization ( - 2023-25 season) 2024 Respiratory Syncytial Virus (RSV) Immunization (Adult) (1 - 1-dose 75+ series) 01/07/2035 Hepatitis B Immunization Aged Out No longer eligible based on patient's age to complete this topic Meningococcal Immunization (ACWY) Aged Out No longer eligible based on patient's age to complete this topic Pneumococcal Immunization Combined Aged Out No longer eligible based on patient's age to complete this topic Rotavirus Immunization Aged Out No lo nger eligible based on patient's age to complete this topic
--- OUTSIDE RECORDS SUMMARY | 2024-10-06 08:49 | XMS_ITS | Continuity of Care Document ---
Author Organization [facility] Address [address] [place] [address] Phone Care Team Providers Care Hr Internship Name Role Phone Rafael Lassiter MD Unavailable [...] Date Provider Providers Copied on Encounter [facility], [address] [address], [place], [place], [id number], [place] tel:[phone] [facility] No Information 5 Sravani Hall. [address], [address], [place], [place], [address] , [place]. tel: [phone] Prolonged serv, w/o contact, 1st hr [facility], [address], [id number], [phone] [facility] No Information 4 Sravani Hall. [address] [facility], [address], [id number] , [place]. tel: [phone] Independent Medical Examination KIERA [facility], [address], [id number], tel:[phone] [facility] JOINT PAIN-SHLDER 4 Sravani Hall. [address] [facility], [address] [address], [place], [place], [id number] , [place]. tel: [phone] Family History Family Member Type Diagnosis Age At Onset Brother Problem (finding) diabetes melli tus in first degree relative Mother Problem (finding) Cardiovascular disease Mother Problem (finding) hypertension Mother Problem (finding) Arthritis Father Problem (finding) Cancer, unknown Immunizations Vaccine Date Status Comments Flu (split) (3 yrs or older) refused Source: Other Provider Payers Payer name Insurance type Covered green party ID Authoriza tion(s) No Information Social [...]
== END 2024-10-06 09:24 | disposition home or self-care (01) ==
PROVIDERS: Emergency Provider Nurse Practitioner Family
DX: J18.9 Pneumonia, unspecified organism (principal); F17.210 Nicotine dependence, cigarettes, uncomplicated
CPT/HCPCS: 71046; 99213; G0463

== ENCOUNTER 2025-02-25 09:53 | Outpatient (CLI) | payer OTHER, SELFPAY ==
--- NOTE | ~2025-02-25 | CT_ITS ---
CT Scan of the Chest without Contrast: Clinical Indication: Lung cancer screening, nicotine dependence Technique: Contiguous sections were acquired throughout the chest without intravenous contrast. Dose reduction technique was used on this scan by utilizing automated exposure control and iterative recon struction technique. The dose-length product (DLP) was 86.85 mGy-cm. COMPARISON: 02/08/2024 Findings: There is no evidence of any significant mediastinal, hilar or axillary lymphadenopathy. The mediastin al soft tissues appear normal. There is no evidence of pleural or pericardial effusion. There is mild biapical scarring. 3 mm right lower lobe pulmonary nodule present. There is a large cys t or bulla at the right lung base. Images through the upper abdomen reveal no abnormalities. Impression: Lung RADS 2: Benign appearance. 12 month follow-up screening CT advised. Reviewed, dictated and finalized at [facility]. Impression: Lung RADS 2: Benign appearance. 12 month follow-up screening CT advised.
--- OUTSIDE RECORDS SUMMARY | 2025-02-25 10:36 | XMS_ITS | Continuity of Care Document ---
Author Organization [facility] Address [address] [place] [address] Phone Care Team Providers Care Spa Receptionist Name Role Phone Rafael Lassiter MD, MD Unavailable Unavaila ble Allergies, Adverse Reactions, Alerts Substance Reaction Status [...] Date Provider Providers Copied on Encounter [facility], [address] [address], [place], [place], [id number], [place] tel:[phone] [facility] No Information 5 Sravani Hall. [address] [facility], [place], [place], [address] , [place]. tel: [phone] Prolonged serv, w/o contact, 1st hr [facility], [address] [facility] [address], [place], [id number], [phone] [facility] No Information 4 Sravani Hall. [address] [facility], [address] [facility], [place], [place], [address] , [place]. tel: [phone] Independent Medical Examination KIERA [facility], [address] [address], [place], [place], [address], tel:[phone] [facility] JOINT PAIN-SHLDER 4 Sravani Hall. [address] [facility], [facility] [address], [place], [place], [address] , [place]. tel: [phone] Family History Family Member Type Diagnosis Age At Onset Brother Problem (finding) diabetes melli tus in first degree relative Mother Problem (finding) Cardiovascular disease Mother Problem (finding) hypertension Mother Problem (finding) Arthritis Father Problem (finding) Cancer, unknown Immunizations Vaccine Date Status Comments Flu (split) (3 yrs or older) refused Source: Other Provider Payers Payer name Insurance type Covered libertarian ID Authoriza tion(s) No Information Social History [...]
--- OUTSIDE RECORDS SUMMARY | 2025-02-25 10:36 | XMS_ITS | Clinical Summary ---
Author Organization [facility] Care Team Providers Care Clip Loading Machine Feeder Name Role Phone Unavailable Primary Care Provider [...]
--- OUTSIDE RECORDS SUMMARY | 2025-02-25 10:36 | XMS_ITS | Data Portability ---
Author Organization [place] [facility] [email or web address], Main Office Address [address] [place] [address] Care Team Providers Care Field Nurse Name Role Phone MANUELA BLANCO Washery Engineer Assessment Encounter Date Assessment Date Assessment LastModified [...] more than half the time spent in nhpu-rh-aueu care. Not available 01/09/2023 09:42:31 01/23/2023 01/23/2023 [...] this patient half the time spent in ugfz-gf-digt care. Is Not available 04/03/2023 09:06:05 Plan [...] DO Not Attach Compendium, Do Not Delete/merge, [id number] 09:31:23 Surgeries None recorded. Imaging None recorded. Medication Orders Kenalog 10 mg/mL suspension for injection 2022 023 [email or web address] [facility] [address] [place], [address], 3 08:36:51 ropivacaine (PF) 5 mg/mL (0.5 %) injection solution 2022 023 [email or web address] [facility] [address] [place], [address], 3 08:37:05 Patient TargetsNo targets recorded. Patient [...] Organization Details Recorded Time Shoulder joint pain [id number] Active Not Available [facility] 3 16:28:02 Pain of right elbow joint [id number] 109 Active 2022 Amanda Quinn, RMA null, [facility] [employer] [facility] 3 08:47:12 Problem Notes None recorded. Medical Equipment None Reported. Allergies Allergen ID Allergen Name Allergen Category Reaction Reaction Severity Criticality Documentation Date Start Date Code Code System Note Provider Name and Address Organization Details Recorded Time 80436 Keflex medicatio n Not available Not available Not available 01/09/202349535 7 RxNorm Lula Brody, VENEER SLICING MACHINE OPERATOR null, [facility] 3 10:07:26 Medications Name Sig [...] , administe red by provider 04/03 completed NDC: 0003- 0494- 20 Not Available Not Available [...] , administe red by provider 04/03 completed [facility] 23807 -064- 01 Not Available Not Available Not [...] SNOMED-CT Code Diagnosis ICD10 Code Diagnosis Note [id number] Franky Todd MD [facility] [place] [address] [place] [address] 01/09/2023 08:33:42 01/09/2023 10:06:58 Pain of right elbow joint [id number] M25.521 [id number] Franky Todd MD [facility] [place] [address] [place] [address] 01/23/2023 08:26:41 01/23/2023 08:57:59 Pain of right elbow joint 0803510618 [id number] M25.521 [id number] Franky Todd MD [facility] [place] [address] [place] [address] 04/03/2023 08:34:55 04/03/2023 09:11:15 Pain of right elbow joint 1042452427 5180560 M25.521 Health Concerns Section Related Observation LastModified by Organization Detai ls LastModified Time None Recorded Concern Status LastModified by Organization Details LastModified Time None Recorded Advance Directives Directive None Recorded Payers Insurance Date Sequence Insurance Name Policy Number Policy Garza Covered Member ID Garza Member ID Guarantor Name 12/05/2022 1 [facility] OPEN ACCESS SENSICARE (POS) [id number] Lars Lopez [id number] Lars Lopez 12/20/2022 [employer] [id number] [employer] Lars Lopez 12/20/2022 [place] [employer] Lars Lopez 03/31/2023 1 [id number] Lars Lopez [id number] Lars Lopez Notes Date Note Type Note Provider Name and Address Organization Details Recorded Time 01/09/2023 text/html Patient is a 62-year-old male who presents for evaluation of his right elbow. 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 Franky Todd MD [address] [place] [address], [address] [address], [place], [address], [facility] Generaytor 01/09/2023 09:42:43
== END 2025-02-25 09:54 | disposition home or self-care (01) ==
PROVIDERS: PCP Nurse Practitioner Family; Visit Provider Nurse Practitioner Family
DX: Z12.2 Encounter for screening for malignant neoplasm of respiratory organs (principal); Z87.891 Personal history of nicotine dependence
CPT/HCPCS: 71271

== ENCOUNTER 2025-03-11 09:20 | Emergency (ER) | payer OTHER, SELFPAY ==
--- NOTE | 2025-03-11 09:23 | ED_ITS ---
HPI - General Adult General Chief complaint: Unspecified Stated complaint: Knot On Neck / Hair loss Problems Time Seen by Provider: 03/11/25 09:22 Source: patient Mode of arrival: ambulatory Limitations: no limitations History of Present Illness HPI narrative: Lars is a 65-year-old male patient presenting to the clinic today with complaints of a knot to his neck and hair loss. He reports symptoms have been going on for the past week. States his scalp is itchy and he is having hair loss. Has swollen lymph nodes to his upper neck/posterior skull. He is a smoker. No recent weight loss or fevers. Denies any headache or sore throat. States he has had the lymph node swelling ever since he has been using albuterol inhaler regularly. Related Data Allergies Allergy/AdvReac Type Severity Reaction Status Date / Time cephalexin AdvReac Mild Hives Verified 03/11/25 09:24 Iodinated Contrast Media AdvReac Mild Hives Verified 03/11/25 09:24 Review of Systems Review of Systems: Pertinent positives per HPI. Patient denies any fever, chills, rash, headache, visual changes, dizziness, shortness of breath, chest pain, palpitations, nausea, vomiting, diarrhea, constipation, abdominal pain, or any urinary issues. [facility] Past Medical History Medical History Pneumothorax, right 09/26/2023 Family History Family History Father Family history of malignant neoplasm of brain Family history of lung cancer Sibling Patient's sister is in good health Diabetes mellitus Malignant neoplasm of prostate Mother Cerebrovascular accident Family history of Alzheimer's disease Social History Social History Smoking packs per day: 1 Smoking cigarettes per day: 20.0 Years smoked: 30 Smoking pack-years: 30.00 Smoking status: Current every day smoker Tobacco type: cigarettes Alcohol intake: current Drinks per week: 15 Substance use: never Substance use type: does not use Do You Feel Safe in your Home?: Yes Lack of Transportation: YES Lack of Food: Never True Current Housing: I Have Housing Concerned About Future Housing: No Difficulty Paying Gas/Electric Bills: No Difficulty Paying for Meds: No Currently Unemployed: No Education: High School Diploma/GED Difficulty w/ Childcare or Family Care: No Living arrangements: with family Additional living arrangements comments: L[place] Occupation/Education: occupation Additional occupation/education comments: 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 There is no relevant family history pertinent to the patient complaint. Exam Narrative: General: Well-developed, well nourished, in no apparent distress Head: Normocephalic, atraumatic, cradle cap with hair loss to the scalp, nontender firm bilateral swollen occipital lymph nodes Eyes: Pupils equally round and reactive to light bilaterally, EOM intact, sclera and conjunctive clear, no discharge, lids normal Ears: TMs intact and clear, ear canals clear, no drainage, grossly hearing normal. Nose: Nares patent, no discharge, no inflammation, no sinus tenderness. Mouth: Oral pharynx without lesions or masses, good dentition, MMM. Neck: Supple, trachea midline, no enlargement of anterior or posterior cervical nodes, no thyroid masses or goiter palpable. Cardio: Regular rate and rhythm, s1 and s2 normal, no murmur appreciated. Resp: Clear to auscultation bilaterally, no rhonchi, rales, wheezing or rubs Course Course Emergency Course: Portions of this record may have been created with voice recognition software. Level of Care: Express Care Visit Vital Signs Vital signs: Vital Signs Temperature 36.1 C L 03/11/25 09:28 Pulse Rate 99 03/11/25 09:28 Respiratory Rate 16 03/11/25 09:28 Blood Pressure 134/64 03/11/25 09:28 Pulse Oximetry 98 03/11/25 09:28 Temperature 36.1 C L 03/11/25 09:28 Pulse Rate 99 03/11/25 09:28 Respiratory Rate 16 03/11/25 09:28 Blood Pressure 134/64 03/11/25 09:28 Pulse Oximetry 98 03/11/25 09:28 Vital signs reviewed Medical Decision Making MDM Narrative Medical decision making narrative: At the time of visit patient is resting comfortably on the exam table. Patient appears to be nontoxic. Plan: I suspect patient has seborrheic dermatitis to the scalp as well as occipital lymphadenopathy. Will send in prescription for ketoconazole shampoo. Recommend follow-up with PCP for further evaluation in 1 week if symptoms persist with the lymph node swelling to rule out other causes. Supportive measures were discussed with the patient and they voiced understanding discharge instructions and agrees to treatment plan. Return precautions reviewed Differential Diagnosis Differential Diagnosis: Seborrheic dermatitis, tinea capitis, occipital lymphadenopathy, cancer, mono, viral syndrome, skin bacterial infection Vital Signs Vital Signs: Vital Signs Temperature 36.1 C L 03/11/25 09:28 Pulse Rate 99 03/11/25 09:28 Respiratory Rate 16 03/11/25 09:28 Blood Pressure 134/64 03/11/25 09:28 Pulse Oximetry 98 03/11/25 09:28 Temperature 36.1 C L 03/11/25 09:28 Pulse Rate 99 03/11/25 09:28 Respiratory Rate 16 03/11/25 09:28 Blood Pressure 134/64 03/11/25 09:28 Pulse Oximetry 98 03/11/25 09:28 Discharge Plan Discharge Clinical Impression: Seborrhea capitis, Lymphadenopathy, occipital Patient Disposition: Home Condition: Stable Instructions: Antibiotic Form, Lymphadenopathy (ED), Seborrheic Dermatitis (DC) Additional Instructions: You have seborrhea dermatitis of your scalp-this could potentially be causing your swollen lymph nodes Use ketoconazole shampoo as directed Increase fluids and stay well hydrated Follow-up with your primary care doctor in 1 week if occipital lymphadenopathy continues-may need blood work and ultrasound completed to rule out other causes. Patient Language: Tamazight Prescriptions: New ketoconazole 2 % shampoo 1 applic topical 2XW 56 Days Qty: 120 1RF No Action albuterol sulfate [Ventolin HFA] 90 mcg/actuation HFA aerosol inhaler 2 puff inhalation QID PRN (Reason: shortness of breath or wheezing) Qty: 8.5 5RF Follow-up/Referrals: Richmond Mcdaniel, [employer] AND GRAPHITE INSPECTOR [Primary Care Provider] - Time of Disposition: 09:37 Quality NIHSS Nursing Documentation ED NIHSS nursing documentation: reviewed/agree
--- OUTSIDE RECORDS SUMMARY | 2025-03-11 09:23 | XMS_ITS | Continuity of Care Document ---
Author Organization [facility] Address [address] [place] [address] Phone Care Team Providers Care Raw Cheese Worker Name Role Phone Rafael Lassiter MD, MD [...] Date Provider Providers Copied on Encounter [facility], [address] [address], [place], [place], [id number], [place] tel:[phone] [facility] No Information 5 Sravani Hall. [address] [facility], [place], [place], [address] , [place]. tel: [phone] Prolonged serv, w/o contact, 1st hr [facility], [address] [facility] [address], [place], [address], [phone] [facility] No Information 4 Sravani Hall. [address] [facility], [address] [facility], [place], [place], [address] , [place]. tel: [phone] Independent Medical Examination KIERA [facility], [address] [address], [place], [place], [address], tel:[phone] [facility] JOINT PAIN-SHLDER 4 Sravani Hall. [address] [facility], [facility] [address], [place], [place], [address] , [place]. tel: [phone] Family History Family Member Type Diagnosis Age [...]
--- OUTSIDE RECORDS SUMMARY | 2025-03-11 09:23 | XMS_ITS | Clinical Summary ---
Author Organization [facility] Address [address] [place] [address] Care Team Providers Care Hand Spring Repairer Helper Name Role Phone Unavailable Primary Care Provider [...] 9:00 AM CDT Height 188 cm (6' 2) 03/21/2012 9:00 AM CDT Body Mass Index 23.11 03/21/2012 9:00 AM CDT Plan of Treatment Health Maintenance Due Date Last Done Comments Colorectal Cancer Screening Colonoscopy (10 Years) 1960 Hepatitis C 01/07/1978 DTaP, Tdap and Td Vaccines ( 1 - Tdap) 01/07/1979 Pneumococcal Vaccine: 50+ Ye ars (1 of 1 - PCV) 01/07/2010 Zoster Vaccines (1 of 2) 01/07/2010 COVID-19 Vaccine ( - 2023-2 5 season) 2024 RSV Immunization or 60+ Years (1 [...]
--- OUTSIDE RECORDS SUMMARY | 2025-03-11 09:23 | XMS_ITS | Clinical Summary ---
Author Organization [facility] Care Team Providers Care Lottery Sales Clerk Name Role Phone Unavailable Primary Care Provider [...]
--- OUTSIDE RECORDS SUMMARY | 2025-03-11 09:23 | XMS_ITS | Data Portability ---
Author Organization [place] [facility] [employer], Main Office Address [address] [place] [address] Care Team Providers Care Supervisor Wire Rope Fabrication Name Role Phone MANUELA BLANCO Creative Writing Professor Assessment Encounter Date Assessment Date Assessment LastModified [...] more than half the time spent in gvcb-ga-glmp care. Not available 01/09/2023 09:42:31 01/23/2023 01/23/2023 [...] this patient half the time spent in qecs-ts-dpri care. Is Not available 04/03/2023 09:06:05 Plan [...] DO Not Attach Compendium, Do Not Delete/merge, [id number] 09:31:23 Surgeries None recorded. Imaging None recorded. Medication Orders Kenalog 10 mg/mL suspension for injection 2022 023 [id number] [facility], [address] [place] [address], [address], 3 08:36:51 ropivacaine (PF) 5 mg/mL (0.5 %) injection solution 2022 023 [id number] [facility] [place], [address], 3 08:37:05 Patient TargetsNo targets recorded. Patient [...] Organization Details Recorded Time Shoulder joint pain [id number] Active Not Available [facility] 3 16:28:02 Pain of right elbow joint [id number] 109 Active 2022 Amanda QuinnJACKY, [facility] datatracker [facility] 3 08:47:12 Problem Notes None recorded. Medical Equipment None Reported. Allergies Allergen ID Allergen Name Allergen Category Reaction Reaction Severity Criticality Documentation Date Start Date Code Code System Note Provider Name and Address Organization Details Recorded Time 62147 Keflex medicatio n Not available Not available Not available 01/09/202359238 7 RxNorm Lula Skinner, EPIC MANAGER null, [facility] datatracker [facility] 3 10:07:26 Medications Name Sig Start Date [...] , administe red by provider 04/03 completed ND: 0003- 0494- 20 Not Available Not Available [...] , administe red by provider 04/03 completed [facility] [id number] -[id number]- [phone] Not Available Not Available Not [...] SNOMED-CT Code Diagnosis ICD10 Code Diagnosis Note [id number] Franky Todd MD [facility] [address] [place] [address] 01/09/2023 08:33:42 01/09/2023 10:06:58 Pain of right elbow joint [id number] M25.521 [id number] Franky Todd MD [facility] [place] [address] [place] [address] 01/23/2023 08:26:41 01/23/2023 08:57:59 Pain of right elbow joint [id number] M25.521 [id number] Franky Todd MD [facility] [place] [address] [place] [address] 04/03/2023 08:34:55 04/03/2023 09:11:15 Pain of right elbow joint [id number] M25.521 Health Concerns Section Related Observation LastModified by Organization Detai ls LastModified Time None Recorded Concern Status LastModified by Organization Details LastModified Time None Recorded Advance Directives Directive None Recorded Payers Insurance Date Sequence Insurance Name Policy Number Policy Garza Covered Member ID Garza Member ID Guarantor Name 12/05/2022 1 [facility] OPEN ACCESS SENSICARE (POS) [id number] Lars Lopez [id number] Lars Lopez 12/20/2022 [facility] INSURANCE [id number] [employer] Lars Lopez 12/20/2022 [place] [employer] Lars Lopez 03/31/2023 1 [employer] [id number] Lars Lopez [id number] Lars Lopez Notes Date Note Type Note Provider Name and Address Organization Details Recorded Time 01/09/2023 text/html Patient is a 62-year-old male who presents for evaluation of his right elbow. 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 Franky Todd MD [address] [place] [address], [place], [address], [facility] [employer] 01/09/2023 09:42:43
--- OUTSIDE RECORDS SUMMARY | 2025-03-11 09:24 | XMS_ITS | Continuity of Care Document ---
Author Organization [facility] Address [address] [place] [address] Phone Care Team Providers Care Electronic Imaging System Operator Name Role Phone Rafael Lassiter MD, MD [...] Date Provider Providers Copied on Encounter [facility], [address] [address], [place], [place], [id number], [place] tel:[phone] [facility] No Information 5 Sravani Hall. [address], [place], [place], [id number] , [place]. tel: [phone] Prolonged serv, w/o contact, 1st hr [facility], [address] [facility] [address], [place], [id number], [phone] [facility] No Information 4 Sravani Hall. [address], [address] [facility], [place], [place], [id number] , [place]. tel: [phone] Independent Medical Examination K[facility], [address] [address], [place], [place], [id number], tel:[phone] [facility] JOINT PAIN-SHLDER 4 Sravani Hall. [address], [facility] [address], [place], [place], [id number] , [place]. tel: [phone] Family History Family Member Type Diagnosis Age [...]
[2025-03-11 09:28] VITALS: BP 134/64; PULSE 99; RESP 16; TEMP 36.1; O2SAT 98
== END 2025-03-11 09:42 | disposition home or self-care (01) ==
PROVIDERS: Emergency Provider Nurse Practitioner Family; PCP Nurse Practitioner Family
DX: L21.0 Seborrhea capitis (principal); R59.0 Localized enlarged lymph nodes; F17.210 Nicotine dependence, cigarettes, uncomplicated
CPT/HCPCS: 99213; G0463